=== PATIENT | female | born 1940 | race Caucasian/White ===

== ENCOUNTER 2016-10-17 22:58 | Inpatient (IN) | payer MEDICARE, BC ==
[2016-10-18 00:42] LABS: Glucose,Whole Blood 142 mg/dL (75-99)
--- NOTE | 2016-10-18 00:50 | ED ---
Altered Mental Status HPI - General Chief Complaint: Altered Mental Status Stated Complaint: Confusion Time Seen by Provider: 10/17/16 23:16 Source: patient, family Mode of arrival: ambulatory Limitations: no limitations - History of Present Illness Initial Comments: This patient is a 75-year-old woman who presents to be evaluated after she began experiencing some difficulty with word finding and using the wrong word for things tonight. The patient states that the symptoms were noted around 8: 30. When she was not feeling better she decided to be seen here out of concern she may have had a stroke. Patient denies any associated headache, change in vision or hearing, weakness or numbness of the extremities. Family states that the speech is clear but at times confused. MD Complaint: other Onset/Timin -: hour(s) Severity: mild Consistency of Symptoms: constant Associated Symptoms: denies other symptoms - Related Data Home Medications Medication Instructions Recorded Confirmed Glimepiride [Amaryl] 2 mg PO AC-[id number] 05/15/14 10/17/16 Metoprolol Tartrate [Lopressor] 25 mg PO DAILY 05/15/14 10/17/16 Omeprazole [PriLOSEC] 20 mg PO DAILY PRN 05/15/14 10/17/16 Atorvastatin [Lipitor] 40 mg PO HS 05/03/16 10/17/16 Dicyclomine [Bentyl] 20 mg PO TID 05/03/16 10/17/16 Insulin Detemir [Levemir] 35 unit SQ HS 05/03/16 10/17/16 Fosinopril [Monopril] 10 mg PO DAILY 10/17/16 10/17/16 Insulin Aspart [NovoLOG Flexpen] See Protocol SQ AC-TID 10/17/16 10/17/16 Previous Rx's Medication Instructions Recorded Clopidogrel [Plavix] 75 mg PO DAILY #30 tab 10/20/16 Loperamide [Imodium] 2 mg PO Q6H PRN #30 capsule 10/20/16 Memantine [Namenda] 5 mg PO DAILY #30 tablet 10/20/16 Allergies Allergy/AdvReac Type Severity Reaction Status Date / Time pioglitazone HCl [From Actos] Allergy Rash/Hives Verified 10/17/16 23:39 sulfamethoxazole Allergy Unknown Verified 10/17/16 23:08 [From Bactrim] trimethoprim [From Bactrim] Allergy Unknown Verified 10/17/16 23:08 moxifloxacin HCl AdvReac Mild Nausea & Verified 10/17/16 23:39 [From Avelox] Vomiting cephalexin monohydrate AdvReac Nausea & Verified 10/17/16 23:39 [From Keflex] Vomiting Review of Systems ROS Statement: Those systems with pertinent positive or pertinent negative responses have been documented in the HPI. ROS Other: All systems not noted in ROS Statement are negative. Constitutional: Denies: fever, chills, weakness Eyes: Denies: vision change ENT: Denies: hearing loss Respiratory: Denies: cough, dyspnea Cardiovascular: Denies: chest pain, palpitations, syncope Gastrointestinal: Denies: abdominal pain, vomiting, diarrhea Genitourinary: Denies: dysuria, hematuria Musculoskeletal: Denies: back pain Skin: Denies: rash Neurological: Reports: as per HPI, confusion, other. Denies: headache, weakness , numbness, paresthesias, vertigo Past Medical History Past Medical History: Cancer, CVA/TIA, Diabetes Mellitus, GERD/Reflux, Hyperlipidemia, Hypertension, Osteoarthritis (OA) Additional Past Medical History / Comment(s): SKIN CANCER, INCONTINENCE History of Any Multi-Drug Resistant Organisms: None Reported Past Surgical History: Cholecystectomy, Joint Replacement Additional Past Surgical History / Comment(s): LEFT PARTIAL KNEE REPLACEMNT, RIGHT EYE -[facility]SPORT Past Anesthesia/Blood Transfusion Reactions: Motion Sickness, Postoperative Nausea & Vomiting (PONV) Past Psychological History: Anxiety Smoking Status: Never smoker Past Alcohol Use History: None Reported Past Drug Use History: None Reported - Past Family History Sister(s) Family Medical History: Cancer Additional Family Medical History / Comment(s): BREAST AND BONE CANCER Father Family Medical History: Cancer Additional Family Medical History / Comment(s): SKIN CANCER General Exam Limitations: no limitations General appearance: alert, in no apparent distress Head exam: Present: atraumatic, normocephalic, normal inspection Eye exam: Present: normal appearance, PERRL, EOMI. Absent: scleral icterus, conjunctival injection, nystagmus ENT exam: Present: normal oropharynx Neck exam: Present: normal inspection Respiratory exam: Present: normal lung sounds bilaterally. Absent: respiratory distress, wheezes, rales, rhonchi, stridor Cardiovascular Exam: Present: regular rate, normal rhythm, normal heart sounds. Absent: systolic murmur, diastolic murmur, rubs, gallop GI/Abdominal exam: Present: soft. Absent: distended, tenderness, guarding, rebound, mass Extremities exam: Present: normal inspection, normal capillary refill. Absent: pedal edema, calf tenderness Back exam: Present: normal inspection. Absent: CVA tenderness (R), CVA tenderness (L) Neurological exam: Present: alert, oriented X3, CN II-XII intact. Absent: motor sensory deficit Skin exam: Present: warm, dry, intact, normal color. Absent: rash Course Vital Signs 10/17/16 10/18/16 10/18/16 23:03 01:01 02:49 Temperature 97.6 F 97.6 F 97.6 F Pulse Rate 66 60 62 Pulse Rate [ Pulse Oximetery ] Respiratory 18 18 18 Rate Blood Pressure 143/66 121/60 134/60 Blood Pressure [Right Arm] O2 Sat by Pulse 98 94 L 96 Oximetry 10/18/16 10/18/16 10/18/16 04:30 05:33 08:30 Temperature 97.4 F L Pulse Rate 60 56 L Pulse Rate [ 57 L Pulse Oximetery ] Respiratory 18 18 16 Rate Blood Pressure 120/56 136/59 Blood Pressure 125/61 [Right Arm] O2 Sat by Pulse 95 96 93 L Oximetry 10/18/16 10/18/16 10/18/16 09:30 10:30 11:30 Temperature Pulse Rate Pulse Rate [ 61 61 60 Pulse Oximetery ] Respiratory 16 16 16 Rate Blood Pressure Blood Pressure 119/56 122/58 108/54 [Right Arm] O2 Sat by Pulse 95 97 97 Oximetry 10/18/16 13:30 Temperature 97 F L Pulse Rate Pulse Rate [ 70 Pulse Oximetery ] Respiratory 19 Rate Blood Pressure Blood Pressure 113/55 [Right Arm] O2 Sat by Pulse 96 Oximetry Medical Decision Making - Lab Data Result diagrams: 10/20/16 05:57 10/20/16 05:57 Lab Results 10/18/16 10/18/16 10/18/16 Range/Units 00:40 01:10 01:10 WBC 8.5 (3.8-10.6) k/uL RBC 3.99 (3.80-5.40) m/uL Hgb 12.2 (11.4-16.0) gm/dL Hct 36.7 (34.0-46.0) % MCV 91.9 (80.0-100.0) fL MCH 30.7 (25.0-35.0) pg MCHC 33.4 (31.0-37.0) g/dL RDW 13.2 (11.5-15.5) % Plt Count 152 (150-450) k/uL Neutrophils % 71 % Lymphocytes % 17 % Monocytes % 5 % Eosinophils % 4 % Basophils % 1 % Neutrophils # 6.0 (1.3-7.7) k/uL Lymphocytes # 1.5 (1.0-4.8) k/uL Monocytes # 0.4 (0-1.0) k/uL Eosinophils # 0.3 (0-0.7) k/uL Basophils # 0.1 (0-0.2) k/uL PT (9.0-12.0) sec INR (<1.1) APTT (22.0-30.0) sec Sodium (137-145) mmol/L Potassium (3.5-5.1) mmol/L Chloride (98-107) mmol/L Carbon Dioxide (22-30) mmol/L Anion Gap mmol/L BUN (7-17) mg/dL Creatinine (0.52-1.04) mg/dL Est GFR (MDRD) Af Amer (>60 ml/min/1.73 sqM) Est GFR (MDRD) Non-Af (>60 ml/min/1.73 sqM) Glucose (74-99) mg/dL POC Glucose (mg/dL) 142 H (75-99) mg/dL POC Glu Maid Supervisor Sharmaine Boyd [address] Glu mg/dL mg/dL Hemoglobin A1c (4.2-6.1) % Calcium (8.4-10.2) mg/dL Total Bilirubin (0.2-1.3) mg/dL AST (14-36) U/L ALT (9-52) U/L Alkaline Phosphatase (38-126) U/L Total Creatine Kinase 72 (30-135) U/L CK-MB (CK-2) 0.4 (0.0-2.4) ng/mL CK-MB (CK-2) Rel Index 0.6 Troponin I <0.012 (0.000-0.034) ng/mL Total Protein (6.3-8.2) g/dL Albumin (3.5-5.0) g/dL Urine Color Urine Appearance (Clear) Urine pH (5.0-8.0) Ur Specific [place] (1.001-1.035) Urine Protein (Negative) Urine Glucose (UA) (Negative) Urine Ketones (Negative) Urine Blood (Negative) Urine Nitrite (Negative) Urine Bilirubin (Negative) Urine Urobilinogen (<2.0) mg/dL Ur Leukocyte Esterase (Negative) Urine RBC (0-5) /hpf Urine WBC (0-5) /hpf Urine WBC Clumps (None) /hpf Ur Squamous Epith Cells (0-4) /hpf Urine Bacteria (None) /hpf Urine Mucus (None) /hpf Urine Opiates Screen (NotDetected) Ur Oxycodone Screen (NotDetected) Urine Methadone Screen (NotDetected) Ur Propoxyphene Screen (NotDetected) Ur Barbiturates Screen (NotDetected) U Tricyclic Antidepress (NotDetected) Ur Phencyclidine Scrn (NotDetected) Ur Amphetamines Screen (NotDetected) U Methamphetamines Scrn (NotDetected) U Benzodiazepines Scrn (NotDetected) Urine Cocaine Screen (NotDetected) U Marijuana (THC) Screen (NotDetected) 10/18/16 10/18/16 10/18/16 Range/Units 01:10 01:10 01:10 WBC (3.8-10.6) k/uL RBC (3.80-5.40) m/uL Hgb (11.4-16.0) gm/dL Hct (34.0-46.0) % MCV (80.0-100.0) fL MCH (25.0-35.0) pg MCHC (31.0-37.0) g/dL RDW (11.5-15.5) % Plt Count (150-450) k/uL Neutrophils % % Lymphocytes % % Monocytes % % Eosinophils % % Basophils % % Neutrophils # (1.3-7.7) k/uL Lymphocytes # (1.0-4.8) k/uL Monocytes # (0-1.0) k/uL Eosinophils # (0-0.7) k/uL Basophils # (0-0.2) k/uL PT 10.0 (9.0-12.0) sec INR 1.0 (<1.1) APTT 21.3 L (22.0-30.0) sec Sodium 139 (137-145) mmol/L Potassium 4.5 (3.5-5.1) mmol/L Chloride 102 (98-107) mmol/L Carbon Dioxide 28 (22-30) mmol/L Anion Gap 9 mmol/L BUN 41 H (7-17) mg/dL Creatinine 1.60 H (0.52-1.04) mg/dL Est GFR (MDRD) Af Amer 38 (>60 ml/min/1.73 sqM) Est GFR (MDRD) Non-Af 32 (>60 ml/min/1.73 sqM) Glucose 140 H (74-99) mg/dL POC Glucose (mg/dL) (75-99) mg/dL POC Glu Maid Supervisor ID Estimated Ave Glu mg/dL 154 mg/dL Hemoglobin A1c 7.0 H (4.2-6.1) % Calcium 9.3 (8.4-10.2) mg/dL Total Bilirubin 0.7 (0.2-1.3) mg/dL AST 21 (14-36) U/L ALT 32 (9-52) U/L Alkaline Phosphatase 111 (38-126) U/L Total Creatine Kinase (30-135) U/L CK-MB (CK-2) (0.0-2.4) ng/mL CK-MB (CK-2) Rel Index Troponin I (0.000-0.034) ng/mL Total Protein 6.7 (6.3-8.2) g/dL Albumin 3.9 (3.5-5.0) g/dL Urine Color Urine Appearance (Clear) Urine pH (5.0-8.0) Ur Specific [place] (1.001-1.035) Urine Protein (Negative) Urine Glucose (UA) (Negative) Urine Ketones (Negative) Urine Blood (Negative) Urine Nitrite (Negative) Urine Bilirubin (Negative) Urine Urobilinogen (<2.0) mg/dL Ur Leukocyte Esterase (Negative) Urine RBC (0-5) /hpf Urine WBC (0-5) /hpf Urine WBC Clumps (None) /hpf Ur Squamous Epith Cells (0-4) /hpf Urine Bacteria (None) /hpf Urine Mucus (None) /hpf Urine Opiates Screen (NotDetected) Ur Oxycodone Screen (NotDetected) Urine Methadone Screen (NotDetected) Ur Propoxyphene Screen (NotDetected) Ur Barbiturates Screen (NotDetected) U Tricyclic Antidepress (NotDetected) Ur Phencyclidine Scrn (NotDetected) Ur Amphetamines Screen (NotDetected) U Methamphetamines Scrn (NotDetected) U Benzodiazepines Scrn (NotDetected) Urine Cocaine Screen (NotDetected) U Marijuana (THC) Screen (NotDetected) 10/18/16 10/18/16 Range/Units 01:17 01:17 WBC (3.8-10.6) k/uL RBC (3.80-5.40) m/uL Hgb (11.4-16.0) gm/dL Hct (34.0-46.0) % MCV (80.0-100.0) fL MCH (25.0-35.0) pg MCHC (31.0-37.0) g/dL RDW (11.5-15.5) % Plt Count (150-450) k/uL Neutrophils % % Lymphocytes % % Monocytes % % Eosinophils % % Basophils % % Neutrophils # (1.3-7.7) k/uL Lymphocytes # (1.0-4.8) k/uL Monocytes # (0-1.0) k/uL Eosinophils # (0-0.7) k/uL Basophils # (0-0.2) k/uL PT (9.0-12.0) sec INR (<1.1) APTT (22.0-30.0) sec Sodium (137-145) mmol/L Potassium (3.5-5.1) mmol/L Chloride (98-107) mmol/L Carbon Dioxide (22-30) mmol/L Anion Gap mmol/L BUN (7-17) mg/dL Creatinine (0.52-1.04) mg/dL Est GFR (MDRD) Af Amer (>60 ml/min/1.73 sqM) Est GFR (MDRD) Non-Af (>60 ml/min/1.73 sqM) Glucose (74-99) mg/dL POC Glucose (mg/dL) (75-99) mg/dL POC Glu Maid Supervisor ID Estimated Ave Glu mg/dL mg/dL Hemoglobin A1c (4.2-6.1) % Calcium (8.4-10.2) mg/dL Total Bilirubin (0.2-1.3) mg/dL AST (14-36) U/L ALT (9-52) U/L Alkaline Phosphatase (38-126) U/L Total Creatine Kinase (30-135) U/L CK-MB (CK-2) (0.0-2.4) ng/mL CK-MB (CK-2) Rel Index Troponin I (0.000-0.034) ng/mL Total Protein (6.3-8.2) g/dL Albumin (3.5-5.0) g/dL Urine Color Colorless Urine Appearance Clear (Clear) Urine pH 5.0 (5.0-8.0) Ur Specific [place] 1.005 (1.001-1.035) Urine Protein Negative (Negative) Urine Glucose (UA) Negative (Negative) Urine Ketones Negative (Negative) Urine Blood Negative (Negative) Urine Nitrite Positive H (Negative) Urine Bilirubin Negative (Negative) Urine Urobilinogen <2.0 (<2.0) mg/dL Ur Leukocyte Esterase Moderate H (Negative) Urine RBC 1 (0-5) /hpf Urine WBC 15 H (0-5) /hpf Urine WBC Clumps Rare H (None) /hpf Ur Squamous Epith Cells 3 (0-4) /hpf Urine Bacteria Occasional H (None) /hpf Urine Mucus Rare H (None) /hpf Urine Opiates Screen Not Detected (NotDetected) Ur Oxycodone Screen Not Detected (NotDetected) Urine Methadone Screen Not Detected (NotDetected) Ur Propoxyphene Screen Not Detected (NotDetected) Ur Barbiturates Screen Not Detected (NotDetected) U Tricyclic Antidepress Not Detected (NotDetected) Ur Phencyclidine Scrn Not Detected (NotDetected) Ur Amphetamines Screen Not Detected (NotDetected) U Methamphetamines Scrn Not Detected (NotDetected) U Benzodiazepines Scrn Not Detected (NotDetected) Urine Cocaine Screen Not Detected (NotDetected) U Marijuana (THC) Screen Not Detected (NotDetected) - EKG Data -: EKG Interpreted by Me EKG shows normal: sinus rhythm, axis (Normal), intervals (Normal), QRS complexes (Normal), ST-T waves (Normal) Rate: normal (Rate 62 bpm) Interpretation: normal EKG Disposition Clinical Impression: Altered mental status, Dehydration, Aphasia Narrative: Possible ischemic stroke Disposition: ADMITTED IP TO THIS [facility] Condition: Fair
--- NOTE | 2016-10-18 01:11 | XR ---
Exam: FILM CXR 10/18/16 at 00 29 hours Single frontal view chest INDICATION: Altered mental status COMPARISON: None FINDINGS: Heart size upper normal to borderline cardiomegaly.. Mediastinal contour normal. No venous congestion.. Lungs are clear. No pleural effusions. Bony elements are within normal limits for age. No acute osseous abnormality. IMPRESSION: No acute cardiopulmonary disease. Lungs are clear. Heart size upper normal to borderline cardiomegaly. No evidence for congestive heart failure.
--- NOTE | 2016-10-18 01:14 | CT ---
Exam: CT HEAD Without Contrast INDICATION: Altered mental status TECHNIQUE: Multiple, contiguous 3 mm axial cuts of the brain are obtained from the posterior fossa to the cranial vault. Sagittal and coronal reformatted images provided. No IV contrast is administered. This CT exam was performed using one or more of the following dose reduction techniques: automated exposure control, adjustment of the mA and/or kV according to patient size, and/or use of iterative reconstruction technique. COMPARISON: None FINDINGS: No acute intracranial hemorrhage or midline shift or mass effect. No acute cortical infarct. There is mild prominence of the sulci, ventricles and cisterns. Coleman-white differentiation is maintained. No skull fractures.. The visualized portions of the paranasal sinuses and mastoid air cells are clear. IMPRESSION: 1. No acute intracranial hemorrhage or acute intracranial process.. 2. Mild generalized atrophy..
[2016-10-18 01:39] LABS: Basophils # (A) 0.1 k/uL (0-0.2); Basophils % (A) 1 %; CH 30.9; CHCM 33.8; Eosinophils # (A) 0.3 k/uL (0-0.7); Eosinophils % (A) 4 %; HCT 36.7 % (34.0-46.0); HDW 2.69; HGB 12.2 gm/dL (11.4-16.0); Luc # (Auto) 0.19; Luc % (Auto) 2; Lymphocytes # (A) 1.5 k/uL (1.0-4.8); Lymphocytes % (A) 17 %; MCH 30.7 pg (25.0-35.0); MCHC 33.4 g/dL (31.0-37.0); MCV 91.9 fL (80.0-100.0); Monocytes # (A) 0.4 k/uL (0-1.0); Monocytes % (A) 5 %; Neutrophils % (A) 71 %; RBC 3.99 m/uL (3.80-5.40); RDW 13.2 % (11.5-15.5); WBC 8.5 k/uL (3.8-10.6); WBC (Perox) 8.57
[2016-10-18 01:57] LABS: Calcium 9.3 mg/dL (8.4-10.2); Potassium 4.5 mmol/L (3.5-5.1); Total Bilirubin 0.7 mg/dL (0.2-1.3); Total Protein 6.7 g/dL (6.3-8.2)
[2016-10-18 01:59] LABS: Creatine Kinase 72 U/L (30-135)
[2016-10-18 02:13] LABS: Creatine Kinase MB 0.4 ng/mL (0.0-2.4); Troponin I <0.012 ng/mL (0.000-0.034)
[2016-10-18 02:24] LABS: Appearance,Urine Clear (Clear); Bacteria,Urine Occasional /hpf; Bilirubin,Urine Negative (Negative); Glucose,Urine (UA) Negative (Negative); Ketones,Urine Negative (Negative); Leukocyte Esterase,Urine Moderate (Negative); Mucus,Urine Rare /hpf; Nitrite,Urine Positive (Negative); Particle Count 13150; Protein,Urine Negative (Negative); RBC,Urine 1 /hpf (0-5); Specific Gravity,Urine 1.005 (1.001-1.035); Squamous Epithelial Cell,Urine 3 /hpf (0-4); UA Billing (MACRO vs. MICRO) MICRO; Urobilinogen,Urine <2.0 mg/dL (<2.0); WBC,Urine 15 /hpf (0-5)
[2016-10-18 02:32] LABS: Partial Thromboplastin Time 21.3 sec (22.0-30.0)
[2016-10-18] MEDS ORDERED: ASPIRIN 325 MG TAB PO STA (02:48)
[2016-10-18] MEDS ORDERED: DIPHENOX-ATROP 2.5-0.025 MG 1 EACH TAB PO PRN (02:55)
[2016-10-18] MEDS ORDERED: ALPRAZolam 0.25 MG TAB PO PRN (02:55)
[2016-10-18] MEDS ORDERED: PANTOPRAZOLE 40 MG TABLET PO PRN (02:55)
[2016-10-18] MEDS: SODIUM CHLORIDE 0.9% 1,000 ML IV SCH ×2 (03:07→12:55)
[2016-10-18] MEDS: GLIMEPIRIDE 2 MG TAB PO SCH (08:35)
[2016-10-18] MEDS: INSULIN LISPRO (humaLOG) 300 UNIT/3 ML VIAL SQ SCH ×3 (09:20→17:22)
--- NOTE | 2016-10-18 09:51 | US ---
EXAMINATION TYPE: US carotid duplex BILAT DATE OF EXAM: 10/18/2016 8:38 AM COMPARISON: NONE CLINICAL HISTORY: Stenosis. Altered mental status, dizziness EXAM MEASUREMENTS: RIGHT: Peak Systolic Velocity (PSV) cm/sec ----- Right CCA: 82.7 ----- Right ICA: 98.2 ----- Right ECA: 87.9 ICA/CCA ratio: 1.2 RIGHT: End Diastole cm/sec ----- Right CCA: 11.5 ----- Right ICA: 15.4 ----- Right ECA: 8.9 LEFT: Peak Systolic Velocity (PSV) cm/sec ----- Left CCA: 82.7 ----- Left ICA: 91.1 ----- Left ECA: 96.6 ICA/CCA ratio: 1.1 LEFT: End Diastole cm/sec ----- Left CCA: 16.7 ----- Left ICA: 25.2 ----- Left ECA: 7.6 VERTEBRALS (direction of flow): Right Vertebral: Antegrade Left Vertebral: Antegrade Mild plaque noted bilateral bifurcations. No increased velocities. NO evidence of significant stenosi s IMPRESSION: Mild plaque noted bilateral bifurcations. No increased velocities. NO evidence of signif icant stenosis Criteria for Assigning % of Stenosis / Diameter reduction (Estimation based on the indirect measurements of the internal carotid artery velocities (ICA PSV). 1. Normal (no stenosis)=ICA PSV < 125 cm/s: ratio < 2.0: ICA EDV<40 cm/s. 2. Less than 50% stenosis=ICA PSV < 125 cm/s: ratio < 2.0: ICA EDV<40 cm/s. 3. 50 to 69% stenosis=ICA PSV of 125 to 230 cm/s: ration 2.0 ? 4.0: ICA EDV 40-100 cm/s. 4. Greater than 70% stenosis to near occlusion= ICA PSV > 230 cm/s: ratio > 4.0: ICA EDV > 100 cm/s. 5. Near occlusion= ICA PSV velocities may be low or undetectable: variable ratio and ICA EDV. 6. Total occlusion=unable to detect flow.
[2016-10-18] MEDS: OXYBUTYNIN CHLORIDE 5 MG TAB PO SCH ×3 (11:09→20:31)
[2016-10-18] MEDS: METOPROLOL SUCCINATE (ER) 25 MG TAB.ER.24H PO SCH (11:09)
[2016-10-18] MEDS: LISINOPRIL 10 MG TAB PO SCH (11:09)
[2016-10-18] MEDS: FAMOTIDINE 20 MG/2 ML VIAL IV SCH ×2 (11:09→20:31)
[2016-10-18] MEDS: DICYCLOMINE 20 MG TAB PO SCH ×3 (11:09→20:30)
[2016-10-18 12:01] LABS: Glucose,Whole Blood 133 mg/dL (75-99)
--- NOTE | 2016-10-18 13:26 | ECHOF ---
Referral Reason:Thrombus MEASUREMENTS -------- HEIGHT: 157.5 cm WEIGHT: 86.2 kg BP: RVIDd: 2.2 cm (< 3.3) IVSd: 1.1 cm (0.6 - 1.1) LVIDd: 3.4 cm (3.9 - 5.3) LVPWd: 1.2 cm (0.6 - 1.1) IVSs: 1.4 cm LVIDs: 3.2 cm LVPWs: 1.3 cm LA Diam: 3.4 cm (2.7 - 3.8) LAESV Index (A-L): 30.35 ml/m Ao Diam: 2.6 cm (2.0 - 3.7) AV Cusp: 1.9 cm (1.5 - 2.6) LA Diam: 3.4 cm (2.7 - 3.8) MV EXCURSION: 17.354 mm (> 18.000) MV EF SLOPE: 72 mm/s (70 - 150) EPSS: 0.2 cm MV E Isai: 0.65 m/s MV DecT: 250 ms MV A Isai: 0.79 m/s MV E/A Ratio: 0.83 RAP: 5.00 mmHg RVSP: 30.47 mmHg FINDINGS -------- Sinus rhythm. This was a technically adequate study. There is mild concentric left ventricular hypertrophy. Overall left ventricular systolic function is normal with, an EF between 55 - 60 %. The right ventricle is normal in size. LA is midly dilated 29-33ml/m2. The right atrial size is normal. There is mild aortic valve sclerosis. There is no evidence of aortic regurgitation. Mild mitral annular calcification present. Mild mitral regurgitation is present. Mild tricuspid regurgitation present. There is no evidence of pulmonary hypertension. The right ventricular systolic pressure, as measured by Doppler, is 30.47mmHg. There is no pulmonic regurgitation present. The aortic root size is normal. There is no pericardial effusion. CONCLUSIONS -------- 1. There is mild concentric left ventricular hypertrophy. 2. Overall left ventricular systolic function is normal with, an EF between 55 - 60 %. 3. LA is midly dilated 29-33ml/m2. 4. There is mild aortic valve sclerosis. 5. Mild mitral annular calcification present. 6. Mild mitral regurgitation is present. 7. Mild tricuspid regurgitation present. 8. There is no evidence of pulmonary hypertension. 9. The right ventricular systolic pressure, as measured by Doppler, is 30.47mmHg. IMPORTER OR EXPORTER: Nara Harvey RDCS
--- NOTE | 2016-10-18 17:00 | P.HPIM ---
History of Present Illness H&P Date: 10/18/16 Chief Complaint: Aphagia This is a 75-year-old female who was in good health until a few hours prior to admission. Patient states that she was having difficulty in finding her words. Patient's who is at bedside states that she was having some difficulty finding words however her speech did not appear slurry or jumbled. Patient's symptoms lasted about 1 hour. Thereafter patient was asked to come to the emergency room for further evaluation. Patient was brought to the ER by her via his car. Patient's symptoms have improved by the time of their arrival to the emergency room. In regards to patient obtaining her blood sugar or blood pressure during the symptoms patient states that she did not obtain it or did the family attempted. In the emergency room patient's blood glucose levels were within normal levels. EKG did not reveal any acute ST-T wave changes or any heart blocks. At the time of my evaluation patient denies having any headaches or blurry vision, nausea, chest pain, difficulty breathing, abdominal pain, urinary urgency or frequency. Patient's gait was also within normal limits apparently patient ambulated to the bathroom without any abnormalities states that she is feeling significantly better. Patient denies having any previous history of TIA or strokes. Review of Systems All systems: negative (Noted in HPI) Past Medical History Past Medical History: Cancer, CVA/TIA, Diabetes Mellitus, GERD/Reflux, Hyperlipidemia, Hypertension, Osteoarthritis (OA) Additional Past Medical History / Comment(s): CVA-ONLY RESIDUAL IS SHE HAS DIFFICULTY WITH NUMBERS, HAS HAD A COUGH ALL WINTER, IDDM TYPE II, CHF WITH ACTOS USE, NEUROPATHY BILATERAL FEET, ARTHRITIS FINGERS AND KNEES, LOW BACK PAIN , CHRONIC SINUSITIS, SKIN CANCER, INCONTINENCE History of Any Multi-Drug Resistant Organisms: None Reported Past Surgical History: Breast Surgery, Cholecystectomy, Joint Replacement, Orthopedic Surgery, Tubal Ligation Additional Past Surgical History / Comment(s): CARDIAC CATH IN 2001-NORMAL, LEFT PARTIAL KNEE REPLACEMNT, RIGHT EYE -CORNEA TRANSPLANT, COLONOSCOPIES WITH BENIGN POLYPECTOMY, L UPPER LIP WIDE RESECTION, L BREAST BX X 2-BENIGN. Past Anesthesia/Blood Transfusion Reactions: Postoperative Nausea & Vomiting ( PONV) Additional Past Anesthesia/Blood Transfusion Reaction / Comment(s): ONE TIME THEY STARTED CUTTING AND I WASN'T ASLEEP Past Psychological History: Anxiety, Depression Additional Psychological History / Comment(s): PT STATES SHE HAS ALITTLE DEPRESSION BUT IS NOT SUICIDAL. SHE RESIDES WITH HER SPOUSE. SHE HAS DRIVEN IN QUITE SOME TIME BUT SPOUSE DRIVES. SHE IS INDEPENDENT WITH HER ADLS. Smoking Status: Never smoker Past Alcohol Use History: None Reported Past Drug Use History: None Reported - Past Family History Sister(s) Family Medical History: Cancer Additional Family Medical History / Comment(s): BREAST AND BONE CANCER Father Family Medical History: Cancer Additional Family Medical History / Comment(s): SKIN CANCER. FATHER AT THE AGE OF 88YRS Medications and Allergies Home Medications Medication Instructions Recorded Confirmed Type ALPRAZolam [Xanax] 0.25 mg PO BID PRN 05/15/14 10/17/16 History Glimepiride [Amaryl] 2 mg PO AC-BRKFST 05/15/14 10/17/16 History Metoprolol Tartrate [Lopressor] 25 mg PO DAILY 05/15/14 10/17/16 History Omeprazole [PriLOSEC] 20 mg PO DAILY PRN 05/15/14 10/17/16 History Oxybutynin Chloride [Ditropan] 5 mg PO TID 05/15/14 10/17/16 History Atorvastatin [Lipitor] 40 mg PO HS 05/03/16 10/17/16 History Dicyclomine [Bentyl] 20 mg PO TID 05/03/16 10/17/16 History Diphenoxylate HCl/Atropine 1 tab PO BID PRN 05/03/16 10/17/16 History [Lomotil] Insulin Detemir [Levemir] 35 unit SQ HS 05/03/16 10/17/16 History Aspirin EC [Ecotrin] 325 mg PO DAILY 10/17/16 10/17/16 History Fosinopril [Monopril] 10 mg PO DAILY 10/17/16 10/17/16 History Insulin Aspart [NovoLOG Flexpen] See Protocol SQ AC-TID 10/17/16 10/17/16 History Allergies Allergy/AdvReac Type Severity Reaction Status Date / Time pioglitazone HCl [From Actos] Allergy Rash/Hives Verified 10/17/16 23:39 sulfamethoxazole Allergy Unknown Verified 10/17/16 23:08 [From Bactrim] trimethoprim [From Bactrim] Allergy Unknown Verified 10/17/16 23:08 moxifloxacin HCl AdvReac Mild Nausea & Verified 10/17/16 23:39 [From Avelox] Vomiting cephalexin monohydrate AdvReac Nausea & Verified 10/17/16 23:39 [From Keflex] Vomiting Physical Exam Vitals: Vital Signs Temp Pulse Pulse Resp BP BP Pulse Ox 10/18/16 13:30 97 F L 70 19 113/55 96 10/18/16 11:30 60 16 108/54 97 10/18/16 10:30 61 16 122/58 97 10/18/16 09:30 61 16 119/56 95 10/18/16 08:30 97.4 F L 57 L 16 125/61 93 L 10/18/16 05:33 56 L 18 136/59 96 10/18/16 04:30 60 18 120/56 95 Intake and Output 10/18/16 10/18/16 10/18/16 06:59 14:59 22:59 Intake Total 250 Balance 250 Intake: Oral 250 Other: # Voids 2 Physical exam Gen. appearance oriented 3 in no distress Neck is supple no JVD Lungs good air entry clear to auscultation no rhonchi or wheezing Heart S1-S2 heard regular rate and rhythm no murmurs appreciated Abdomen is soft nontender no organomegaly bowel sounds are intact Neurologically cranial nerves II-12 grossly intact no focal motor or sensory deficits noted status condition noted. Remembers 2 objects after 10 minutes no dysarthria or aphasia appreciated. Skin no abnormalities appreciated Results CBC & Chem 7: 10/18/16 01:10 10/18/16 01:10 Labs: Abnormal Lab Results - Last 24 Hours (Table) 10/18/16 Range/Units 12:00 POC Glucose (mg/dL) 133 H (75-99) mg/dL Thrombosis Risk Factor Assmnt - Choose All That Apply Any of the Below Risk Factors Present?: Yes Each Factor Represents 1 point: Obesity (BMI >25) Other Risk Factors: Yes Each Risk Factor Represents 2 Points: Age 61-74 years, Malignancy Other congenital or acquired thrombophilia - If yes, enter type in comment: No Thrombosis Risk Factor Assessment Total Risk Factor Score: 5 Thrombosis Risk Factor Assessment Level: High Risk Assessment and Plan Plan: #1 acute CVA appears to be transient in nature . Other etiologies could include hypoglycemia in a patient with diabetes and currently on medications. #2 CK D stage III baseline creatinine of point 1. 3 repeat labs in the a.m. #3 diabetes mellitus type 2 #4 history of hypertension #5 dyslipidemia #6 urinary incontinence Plan Patient has had symptoms for one hour. We'll need to monitor for at least 24 hours is a risk of a stroke is high during this period. Echocardiogram is done carotid Doppler is reviewed. Continue telemetry monitoring Aspirin and statin will be given. Patient's medications will be re-reconciled Check frequent glucose levels. Neuro checks If patient does not have any symptoms and risk factors are delineated patient will likely be discharged home thereafter neurology consultation will also be obtained.
[2016-10-18 17:05] LABS: Glucose,Whole Blood 137 mg/dL (75-99)
[2016-10-18] MEDS ORDERED: LORazepam 2 MG/ML SYRINGE IV STA (19:31)
[2016-10-18] MEDS: ATORVASTATIN 40 MG TAB PO SCH (20:30)
[2016-10-18] MEDS: INSULIN DETEMIR 100 UNIT/ML 10 ML VIAL SQ SCH (20:31)
[2016-10-18 21:15] LABS: Glucose,Whole Blood 179 mg/dL (75-99)
[2016-10-19] MEDS: INSULIN LISPRO (humaLOG) 300 UNIT/3 ML VIAL SQ SCH ×5 (00:19→21:31)
[2016-10-19] MEDS ORDERED: ASPIRIN 325 MG TAB PO SCH (02:54)
[2016-10-19 06:43] LABS: Basophils % (A) 0 %; CH 30.4; CHCM 32.9; Eosinophils # (A) 0.3 k/uL (0-0.7); Eosinophils % (A) 4 %; HCT 33.5 % (34.0-46.0); Luc # (Auto) 0.13; Luc % (Auto) 2; Lymphocytes # (A) 1.2 k/uL (1.0-4.8); Lymphocytes % (A) 19 %; MCH 30.5 pg (25.0-35.0); MCHC 32.9 g/dL (31.0-37.0); MCV 92.9 fL (80.0-100.0); Mean Platelet Volume 8.2; Monocytes # (A) 0.4 k/uL (0-1.0); Monocytes % (A) 6 %; Neutrophils # (A) 4.3 k/uL (1.3-7.7); Neutrophils % (A) 68 %; RBC 3.61 m/uL (3.80-5.40); RDW 13.3 % (11.5-15.5); WBC 6.3 k/uL (3.8-10.6); WBC (Perox) 6.62
[2016-10-19] MEDS: GLIMEPIRIDE 2 MG TAB PO SCH (06:44)
[2016-10-19] MEDS: SODIUM CHLORIDE 0.9% 1,000 ML IV SCH ×3 (06:44→18:55)
[2016-10-19 06:48] LABS: Glucose,Whole Blood 77 mg/dL (75-99)
[2016-10-19 07:06] LABS: Potassium 4.4 mmol/L (3.5-5.1)
[2016-10-19 07:07] LABS: Total Bilirubin 0.8 mg/dL (0.2-1.3)
[2016-10-19] MEDS: CLOPIDOGREL 75 MG TAB PO SCH (08:18)
[2016-10-19] MEDS: OXYBUTYNIN CHLORIDE 5 MG TAB PO SCH ×2 (08:18→15:58)
[2016-10-19] MEDS: LISINOPRIL 10 MG TAB PO SCH (08:18)
[2016-10-19] MEDS: METOPROLOL SUCCINATE (ER) 25 MG TAB.ER.24H PO SCH (08:18)
[2016-10-19] MEDS: DICYCLOMINE 20 MG TAB PO SCH ×3 (08:18→21:38)
[2016-10-19] MEDS: FAMOTIDINE 20 MG/2 ML VIAL IV SCH (08:18)
--- NOTE | 2016-10-19 09:43 | CONS ---
DATE OF CONSULTATION: 10/18/2016 CHIEF COMPLAINT: Stroke. HISTORY OF PRESENT ILLNESS: Ms. Wilson is a pleasant 75-year-old female who is being evaluated today on 10/18/2016 by the neurology service per the request of Dr. Gomez for a stroke. The patient was brought into [facility] emergency room yesterday with the main complaint of altered mental status. The patient was found to have word finding difficulties and symptoms had started yesterday night at around 8:30 p.m. She did not have any lateralizing numbness or weakness. The patient does have history of previous stroke and was on aspirin 325 mg daily at home. A CT scan of the brain was done, which showed only mild generalized atrophy and no acute abnormalities. Her carotid Doppler showed no hemodynamically significant stenosis. Her cardiac enzymes, CBC, and urine drug screen were normal. Her comprehensive metabolic profile showed renal insufficiency with a BUN of 41 and creatinine of 1.6. The patient is a poor historian regarding her renal function history. Her urinalysis showed 15 WBCs with moderate leukocyte esterase and positive nitrites. At the time of my evaluation, the patient is sitting at the edge of her bed and appears to be in no acute distress. She states that her symptoms have improved but she is still having occasional word finding difficulties. She denies any visual changes or dizziness or headache. PAST MEDICAL HISTORY: Stroke, skin cancer, diabetes, gastroesophageal reflux disease, dyslipidemia, hypertension, arthritis, anxiety disorder, history of cholecystectomy, skin cancer resection, joint replacement surgery. She has also had history of right eye corneal transplant. SOCIAL HISTORY: She denies any tobacco, alcohol or drug use. FAMILY HISTORY: Positive for cancer. HOME MEDICATIONS: Reviewed in the chart. ALLERGIES: ACTOS, BACTRIM, AVELOX, KEFLEX. REVIEW OF SYSTEMS: CONSTITUTIONAL: Negative. EYES: Positive for chronic diminished vision. ENT: Negative. CARDIOVASCULAR: Negative. RESPIRATORY: Negative. NEUROLOGICAL: As mentioned above. GASTROINTESTINAL: Positive for occasional heartburn. GENITOURINARY: Negative. PSYCHIATRIC: Positive for history of anxiety disorder. DERMATOLOGICAL: Positive for history of skin cancer. ENDOCRINE: Positive for diabetes. MUSCULOSKELETAL: Positive for occasional joint pain. PHYSICAL EXAM: Vital signs show a temperature of 97.4, pulse 61, respirations 16, blood pressure 119/56. GENERAL APPEARANCE: The patient is a well-developed, elderly female who appears to be in no acute distress. HEENT: Normocephalic, atraumatic, no facial asymmetry is seen. Extraocular muscles are intact. NECK: Supple with no masses felt. CARDIOVASCULAR: Regular rate and rhythm. ABDOMEN: Nontender, nondistended. EXTREMITIES: No edema or clubbing. NEUROLOGICAL EXAM: The patient is awake, and oriented x3. Speech and language are normal as the patient had normal comprehension, fluency, naming and repetition. Strength is full in all 4 extremities. Sensory exam was normal to light touch in all 4 extremities except near the left knee where she had a knee replacement surgery. No tremors or seizure-like activity is seen. Minimal right facial droop is seen on cranial nerve testing, but this is from her previous stroke according to her . IMPRESSION: 1. Acute ischemic stroke, likely left middle cerebral artery distribution. 2. Expressive aphasia, improved. 3. Renal insufficiency. 4. Dehydration. 5. Acute urinary tract infection. RECOMMENDATIONS: The patient does appear to have suffered an acute ischemic stroke involving the left middle cerebral artery distribution. The patient's symptoms have improved but she states that she is still sometimes having word finding difficulties. Her neurological examination showed normal language testing. She continues to have a mild right facial droop but this is old and from her previous stroke according to her . I will order an MRI of the brain without contrast. She does report some claustrophobia and will pretreat her with Ativan IV. Her carotid Doppler showed no hemodynamically significant stenosis. I will order a fasting lipid panel, EEG, and serum homocysteine level. I do recommend continued IV hydration. I will discontinue aspirin and start her on Plavix 75 mg daily. It is unclear if the patient has chronic renal disease or if she has significant dehydration at this time. Continue following her BUN and creatinine. I do recommend antibiotic therapy for her urinary tract infection. Speech therapy is following the patient. I will continue to follow with you. Further recommendations to follow. Thank you for allowing me to participate in the care of your patient. If you have any questions, please feel free to contact me.
[2016-10-19 11:27] LABS: Glucose,Whole Blood 137 mg/dL (75-99)
[2016-10-19] MEDS ORDERED: LORazepam 2 MG/ML SYRINGE ONE (13:46)
--- NOTE | 2016-10-19 14:53 | MR ---
EXAMINATION TYPE: MR brain wo con DATE OF EXAM: 10/19/2016 2:39 PM COMPARISON: CT brain 10/18/2016 HISTORY: AMS, TIA vs ischemic stroke, slurred speech, left facial numbness, BLE weakness CONTRAST: Performed utilizing 0 mL intravenous MultiHance gadolinium contrast. TECHNIQUE: Multiplanar, multisequence imaging of the brain is performed on a 3.0 Maribeth magnet. Demye linating disease protocol with additional Sagittal Flair sequence is performed. Study is not performe d within 24 hours of arrival to the hospital. FINDINGS: T2 White Matter Lesions Present : Yes Approximate Number of Lesions: Multiple scattered Locations Identified : Centrum semiovale, subcortical white matter, periventricular white matter Size of Largest Lesion(s): 1. 0.4 cm. Location: Left Centrum semiovale frontal lobe Sequence 401 Image 21 (axial) 2. 0.5 cm. Location: Posterior left frontal lobes subcortical white matter Sequence 401 Image 21 (a xial) Enhancing Lesion(s) Present: Not applicable Change from Prior: No prior MRI Diffusion-weighted imaging is performed. No abnormal hyperintensity is present to suggest an acute i ntracranial infarct or acute ischemic change. Ventricles and sulci are mildly prominent for the patient age. . Some mucosal thickening may be within ethmoid air cells. Remaining paranasal sinuses are clear. Mas toid air cells are clear. IMPRESSION: 1. Scattered white matter changes. The differential could include microvascular ischemic change. Mul tiple sclerosis is considered less likely. Infectious etiologies such as Lyme disease and forms of va sculitis are considered less likely. 2. Mild age-related atrophy. 3. No acute intracranial ischemic changes.
--- NOTE | 2016-10-19 16:06 | P.PN ---
Subjective Principal diagnosis: she is a pleasant 75-year-old female who is being followed by the neurology service for stroke. The patient was brought to [facility] with altered mental status.patient had word finding difficulties but did not have any lateralizing numbness or weakness. Computed tomography scan of the brain was done which showed only mild generalized atrophy no acute abnormalities. As you recall, her carotid Doppler showed no hemodynamically significant stenosis. Patient is a poor historian and information was gathered from staff and chart. At the time of my evaluation, patient is sitting up at the bedside in the chair and appears to be in no acute distress. Objective - Vital Signs Vital signs: Vital Signs Temp 96.6 F L 10/19/16 11:29 Pulse 65 10/19/16 11:30 Resp 18 10/19/16 11:30 BP 152/67 10/19/16 11:29 Pulse Ox 97 10/19/16 11:29 Intake & Output 10/18/16 10/19/16 10/19/16 18:59 06:59 18:59 Intake Total 250 1740 Output Total 900 Balance 250 -900 1740 Weight 86.6 kg Intake: Intake, IV Titration 1200 Amount Sodium Chloride 0.9% 1, 1200 000 ml @ 100 mls/hr IV . Q10H JOSE MIGUEL Rx#:[id number] Oral 250 540 Output: Urine 900 Other: Voiding Method Toilet Toilet # Voids 2 1 - Exam PHYSICAL EXAM: GENERAL APPEARANCE: Patient is a well-developed, female who appears to be in no acute distress. HEENT: Normocephalic, atraumatic, no facial asymmetry is seen. Neck is supple with no masses felt. CARDIOVASCULAR: Regular rate and rhythm. ABDOMEN: Nontender, nondistended. EXTREMITIES: Show no edema or clubbing. NEUROLOGICAL EXAM:the patient is awake, alert, and oriented 2. Patient does not know where she is. Speech and language are normal. Strength is full in all 4 extremities. Sensory exam is normal to light touch in all 4 extremities. Slight facial droop on the right is seen on cranial nerve testing, but this is chronic from prior stroke. No tremors or seizure-like activity is noted. - Labs CBC & Chem 7: 10/19/16 05:59 10/19/16 05:59 Labs: Abnormal Lab Results - Last 24 Hours (Table) 10/18/16 10/18/16 10/19/16 Range/Units 17:03 21:13 05:59 RBC 3.61 L (3.80-5.40) m/uL Hgb 11.0 L (11.4-16.0) gm/dL Hct 33.5 L (34.0-46.0) % Plt Count 127 L (150-450) k/uL Chloride (98-107) mmol/L BUN (7-17) mg/dL Creatinine (0.52-1.04) mg/dL POC Glucose (mg/dL) 137 H 179 H (75-99) mg/dL Total Protein (6.3-8.2) g/dL Albumin (3.5-5.0) g/dL 10/19/16 10/19/16 Range/Units 05:59 11:25 RBC (3.80-5.40) m/uL Hgb (11.4-16.0) gm/dL Hct (34.0-46.0) % Plt Count (150-450) k/uL Chloride 112 H (98-107) mmol/L BUN 31 H (7-17) mg/dL Creatinine 1.32 H (0.52-1.04) mg/dL POC Glucose (mg/dL) 137 H (75-99) mg/dL Total Protein 6.0 L (6.3-8.2) g/dL Albumin 3.4 L (3.5-5.0) g/dL Assessment and Plan Plan: Impression: 1. Acute ischemic stroke 2. Expressive aphasia 3. Renal insufficiency 4. Dehydration 5. Acute urinary tract infection Recommendations: Patient does appear to have suffered an acute ischemic stroke involving the left middle cerebral artery distribution. MRI was done and shows scattered white matter changes. MRI shows microvascular ischemic changes and mild age-related atrophy without any acute process. I recommend continuing patient on Plavix 75 mg by mouth daily. Patient's symptoms are slowly improving but she still has word finding difficulties. As you recall, her carotid Doppler showed no hemodynamically significant stenosis. Her fasting lipid panel and homocysteine level were within normal limits. EEG was ordered but has yet to be performed. Continue current medical management. Continue speech therapy. I will continue to follow with you. Further recommendations to follow. I performed an examination of the patient and discussed the management with the [facility]. I have reviewed the [facility] notes and agree with the findings and plan of care.
[2016-10-19 16:31] LABS: Glucose,Whole Blood 126 mg/dL (75-99)
--- NOTE | 2016-10-19 18:05 | P.PN ---
Subjective This is a 75-year-old female who was in good health until a few hours prior to admission. Patient states that she was having difficulty in finding her words. Patient's who is at bedside states that she was having some difficulty finding words however her speech did not appear slurry or jumbled. Patient's symptoms lasted about 1 hour. Thereafter patient was asked to come to the emergency room for further evaluation. Patient was brought to the ER by her via his car. Patient's symptoms have improved by the time of their arrival to the emergency room. In regards to patient obtaining her blood sugar or blood pressure during the symptoms patient states that she did not obtain it or did the family attempted. In the emergency room patient's blood glucose levels were within normal levels. EKG did not reveal any acute ST-T wave changes or any heart blocks. At the time of my evaluation patient denies having any headaches or blurry vision, nausea, chest pain, difficulty breathing, abdominal pain, urinary urgency or frequency. Patient's gait was also within normal limits apparently patient ambulated to the bathroom without any abnormalities states that she is feeling significantly better. Patient denies having any previous history of TIA or strokes. 10/19/2016 No new overnight events. Patient apparently has had an episode this a.m. where she was having some difficulty finding words. Denies having any headaches, blurry vision, nausea, vomiting, urinary urgency or frequency at this time. Objective - Vital Signs Vital signs: Vital Signs Temp 97.0 F L 10/19/16 16:00 Pulse 62 10/19/16 16:00 Resp 18 10/19/16 16:00 BP 131/65 10/19/16 16:00 Pulse Ox 97 10/19/16 16:00 Intake & Output 10/18/16 10/19/16 10/19/16 18:59 06:59 18:59 Intake Total 250 1740 Output Total 900 250 Balance 250 -900 1490 Weight 86.6 kg Intake: Intake, IV Titration 1200 Amount Sodium Chloride 0.9% 1, 1200 000 ml @ 100 mls/hr IV . Q10H JOSE MIGUEL Rx#:[id number] Oral 250 540 Output: Urine 900 250 Other: Voiding Method Toilet Toilet # Voids 2 1 1 - Exam Physical exam Gen. appearance oriented 3 in no distress Neck is supple no JVD Lungs good air entry clear to auscultation no rhonchi or wheezing Heart S1-S2 heard regular rate and rhythm no murmurs appreciated Abdomen is soft nontender no organomegaly bowel sounds are intact Neurologically cranial nerves II-12 grossly intact no focal motor or sensory deficits noted no dysphagia no dysarthria no aphasia noted. Skin no abnormalities appreciated - Labs CBC & Chem 7: 10/19/16 05:59 10/19/16 05:59 Labs: Abnormal Lab Results - Last 24 Hours (Table) 10/18/16 10/19/16 10/19/16 Range/Units 21:13 05:59 05:59 RBC 3.61 L (3.80-5.40) m/uL Hgb 11.0 L (11.4-16.0) gm/dL Hct 33.5 L (34.0-46.0) % Plt Count 127 L (150-450) k/uL Chloride 112 H (98-107) mmol/L BUN 31 H (7-17) mg/dL Creatinine 1.32 H (0.52-1.04) mg/dL POC Glucose (mg/dL) 179 H (75-99) mg/dL Total Protein 6.0 L (6.3-8.2) g/dL Albumin 3.4 L (3.5-5.0) g/dL 10/19/16 10/19/16 Range/Units 11:25 16:29 RBC (3.80-5.40) m/uL Hgb (11.4-16.0) gm/dL Hct (34.0-46.0) % Plt Count (150-450) k/uL Chloride (98-107) mmol/L BUN (7-17) mg/dL Creatinine (0.52-1.04) mg/dL POC Glucose (mg/dL) 137 H 126 H (75-99) mg/dL Total Protein (6.3-8.2) g/dL Albumin (3.5-5.0) g/dL Assessment and Plan Plan: #1 acute CVA of the left MCA territory. Await MRI results #2 CK D stage III creatinine stable #3 diabetes mellitus type 2 #4 history of hypertension #5 dyslipidemia #6 urinary incontinence Plan There appears to be some concern for delirium at this time. Patient still does not complain of any urinary urgency or frequency. There may be some underlying dementia. Creatinine is improved. Repeat UA in the a.m. Patient apparently has been having some issues with finding words of the RN has discussed that there is some odd behavior where patient forgets her location and this has been going on for 2 weeks at least according to some of the family. Unsure if patient has had progressive loss of her cognitive function. However a Mini-Mental assessment will be done tomorrow Await MRI results
[2016-10-19 21:21] LABS: Glucose,Whole Blood 111 mg/dL (75-99)
[2016-10-19] MEDS: INSULIN DETEMIR 100 UNIT/ML 10 ML VIAL SQ SCH (21:38)
[2016-10-19] MEDS: ATORVASTATIN 40 MG TAB PO SCH (21:38)
[2016-10-20] MEDS: SODIUM CHLORIDE 0.9% 1,000 ML IV SCH (05:11)
[2016-10-20 05:45] LABS: Glucose,Whole Blood 91 mg/dL (75-99)
[2016-10-20 05:55] LABS: Appearance,Urine Clear (Clear); Bacteria,Urine Rare /hpf; Bilirubin,Urine Negative (Negative); Glucose,Urine (UA) Negative (Negative); Ketones,Urine Negative (Negative); Leukocyte Esterase,Urine Large (Negative); Mucus,Urine Rare /hpf; Nitrite,Urine Positive (Negative); Particle Count 22958; Protein,Urine Negative (Negative); RBC,Urine 2 /hpf (0-5); Specific Gravity,Urine 1.006 (1.001-1.035); UA Billing (MACRO vs. MICRO) MICRO; Urobilinogen,Urine <2.0 mg/dL (<2.0); WBC,Urine 56 /hpf (0-5)
[2016-10-20] MEDS: INSULIN LISPRO (humaLOG) 300 UNIT/3 ML VIAL SQ SCH (06:41)
[2016-10-20 06:45] LABS: Basophils % (A) 1 %; CH 31.1; CHCM 33.2; Eosinophils # (A) 0.3 k/uL (0-0.7); Eosinophils % (A) 4 %; HDW 2.68; HGB 11.4 gm/dL (11.4-16.0); Luc # (Auto) 0.15; Luc % (Auto) 2; Lymphocytes # (A) 1.1 k/uL (1.0-4.8); Lymphocytes % (A) 17 %; MCH 30.8 pg (25.0-35.0); MCHC 32.6 g/dL (31.0-37.0); MCV 94.2 fL (80.0-100.0); Mean Platelet Volume 8.2; Monocytes # (A) 0.3 k/uL (0-1.0); Monocytes % (A) 5 %; Neutrophils # (A) 4.9 k/uL (1.3-7.7); Neutrophils % (A) 71 %; RBC 3.71 m/uL (3.80-5.40); RDW 13.2 % (11.5-15.5); WBC 6.9 k/uL (3.8-10.6); WBC (Perox) 7.27
[2016-10-20] MEDS: GLIMEPIRIDE 2 MG TAB PO SCH (06:45)
[2016-10-20 07:00] LABS: Calcium 8.9 mg/dL (8.4-10.2); Potassium 4.4 mmol/L (3.5-5.1); Total Bilirubin 0.7 mg/dL (0.2-1.3); Total Protein 6.3 g/dL (6.3-8.2)
[2016-10-20] MEDS: LISINOPRIL 10 MG TAB PO SCH (08:06)
[2016-10-20] MEDS: CLOPIDOGREL 75 MG TAB PO SCH (08:06)
[2016-10-20] MEDS: METOPROLOL SUCCINATE (ER) 25 MG TAB.ER.24H PO SCH (08:06)
[2016-10-20] MEDS: DICYCLOMINE 20 MG TAB PO SCH (08:06)
[2016-10-20 08:11] VITALS: RESP 16
[2016-10-20] MEDS ORDERED: FAMOTIDINE 20 MG TAB PO SCH (09:00)
[2016-10-20 11:41] LABS: Glucose,Whole Blood 108 mg/dL (75-99)
[2016-10-20 12:26] VITALS: PULSE 55
[2016-10-20 12:28] VITALS: BP 140/58; TEMP 97.5
--- NOTE | 2016-10-20 15:13 | P.DS ---
Providers Date of admission: 10/18/16 02:49 Attending physician: Trish Gomez Primary care physician: Lilia Krystal [facility] Course: This is a 75-year-old female who was in good health until a few hours prior to admission. Patient states that she was having difficulty in finding her words. Patient's who is at bedside states that she was having some difficulty finding words however her speech did not appear slurry or jumbled. Patient's symptoms lasted about 1 hour. Thereafter patient was asked to come to the emergency room for further evaluation. Patient was brought to the ER by her via his car. Patient's symptoms have improved by the time of their arrival to the emergency room. In regards to patient obtaining her blood sugar or blood pressure during the symptoms patient states that she did not obtain it or did the family attempted. In the emergency room patient's blood glucose levels were within normal levels. EKG did not reveal any acute ST-T wave changes or any heart blocks. At the time of my evaluation patient denies having any headaches or blurry vision, nausea, chest pain, difficulty breathing, abdominal pain, urinary urgency or frequency. Patient's gait was also within normal limits apparently patient ambulated to the bathroom without any abnormalities states that she is feeling significantly better. Patient denies having any previous history of TIA or strokes. 10/19/2016 No new overnight events. Patient apparently has had an episode this a.m. where she was having some difficulty finding words. Denies having any headaches, blurry vision, nausea, vomiting, urinary urgency or frequency at this time. - Exam Physical exam Gen. appearance oriented 3 in no distress Neck is supple no JVD Lungs good air entry clear to auscultation no rhonchi or wheezing Heart S1-S2 heard regular rate and rhythm no murmurs appreciated Abdomen is soft nontender no organomegaly bowel sounds are intact Neurologically cranial nerves II-12 grossly intact no focal motor or sensory deficits noted no dysphagia no dysarthria no aphasia noted. 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 Transient ischemic attack MRI results were noted appears to be multiple old strokes. #2 CK D stage III creatinine stable #3 diabetes mellitus type 2 #4 history of hypertension #5 dyslipidemia #6 urinary incontinence Dementia MMSE score 21 Accordanc to the family patient has been progressively getting forgetful over the last few years. 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 Patient is not able to recall or do serial sevens. MMSE score was around 21. Discussed with the patient will attempt a dose of Namenda 5 mg. Is to follow- up with the neurologist on an outpatient basis Patient will be discharged on Plavix and atorvastatin as recommended by her neurologist. Plan - Discharge Summary New Discharge Prescriptions: Clopidogrel [Plavix] 75 mg PO DAILY #30 tab Loperamide [Imodium] 2 mg PO Q6H PRN #30 capsule PRN Reason: Diarrhea Memantine [Namenda] 5 mg PO DAILY #30 tablet Discharge Medication List Glimepiride [Amaryl] 2 mg PO AC-BRKFST 05/15/14 [History] Metoprolol Tartrate [Lopressor] 25 mg PO DAILY 05/15/14 [History] Omeprazole [PriLOSEC] 20 mg PO DAILY PRN 05/15/14 [History] Atorvastatin [Lipitor] 40 mg PO HS 05/03/16 [History] Dicyclomine [Bentyl] 20 mg PO TID 05/03/16 [History] Insulin Detemir [Levemir] 35 unit SQ HS 05/03/16 [History] Fosinopril [Monopril] 10 mg PO DAILY 10/17/16 [History] Insulin Aspart [NovoLOG Flexpen] See Protocol SQ AC-TID 10/17/16 [History] Clopidogrel [Plavix] 75 mg PO DAILY #30 tab 10/20/16 [Rx] Loperamide [Imodium] 2 mg PO Q6H PRN #30 capsule 10/20/16 [Rx] Memantine [Namenda] 5 mg PO DAILY #30 tablet 10/20/16 [Rx] Follow up Appointment(s)/Referral(s): Janee De Oliveira MD [STAFF PHYSICIAN] - 1 Week Lilia Rice MD [Primary Care Provider] - 1 Week Patient Instructions/Handouts: Transient Ischemic Attack (GEN) Activity/Diet/Wound Care/Special Instructions: activity as tolerated diabetic/cardiac diet take medications as prescribed Follow-up with physician, call for appt. office closed Discharge Disposition: HOME SELF-CARE
--- NOTE | 2016-10-25 08:30 | EEG ---
DATE OF SERVICE: 10/20/2016 REASON FOR TESTING: Altered mental status and stroke. AGE: 75Y DESCRIPTION OF THE PROCEDURE: This EEG was performed using a 21-channel digital electroencephalograph, following the international 10 to 20 system. DESCRIPTION OF THE RECORDING: From the beginning of the tracing, and with the patient's eyes closed, the background rhythm was mostly consisting of 7 Hz theta frequency in the posterior occipital leads. No obvious asymmetry is seen. Muscle artifacts and movement artifacts are seen. Photic stimulation was performed with no driving response seen. No pathological waves were elicited. Hyperventilation was not performed. The patient remains awake throughout the tracing. No epileptiform discharges were seen. Her EKG lead showed a regular rate and rhythm. INTERPRETATION: This awake EEG is abnormal due to the presence of generalized slowing of the background rhythm, mostly in the theta range. This is consistent with mild encephalopathy. No epileptiform discharges were seen. The absence of epileptiform discharges does not rule out the diagnosis of epilepsy, therefore clinical correlation is recommended.
== END 2016-10-20 14:45 | disposition home or self-care (01) | DRG 65 ==
LOC: EC 22:58 → 6SEL 10-18 02:49 → 3SUR 10-20 10:53
PROVIDERS: ADMIT Hospitalist; ATTEND Hospitalist
DX: I63.9 Cerebral infarction, unspecified (principal); N39.0 Urinary tract infection, site not specified; I13.0 Hypertensive heart and chronic kidney disease with heart failure and stage 1 through stage 4 chronic kidney disease, or unspecified chronic kidney disease; I50.9 Heart failure, unspecified; F03.90 Unspecified dementia, unspecified severity, without behavioral disturbance, psychotic disturbance, mood disturbance, and anxiety; E11.40 Type 2 diabetes mellitus with diabetic neuropathy, unspecified; R47.01 Aphasia; E86.0 Dehydration; I69.998 Other sequelae following unspecified cerebrovascular disease; E78.5 Hyperlipidemia, unspecified; F32.9 Major depressive disorder, single episode, unspecified; F41.9 Anxiety disorder, unspecified; J32.9 Chronic sinusitis, unspecified; K21.9 Gastro-esophageal reflux disease without esophagitis; R32 Unspecified urinary incontinence; N18.3 Chronic kidney disease, stage 3 (moderate); M54.5 Low back pain; M19.049 Primary osteoarthritis, unspecified hand; M17.0 Bilateral primary osteoarthritis of knee; H54.7 Unspecified visual loss; Z79.4 Long term (current) use of insulin; Z79.82 Long term (current) use of aspirin; Z79.899 Other long term (current) drug therapy; Z85.828 Personal history of other malignant neoplasm of skin; Z88.1 Allergy status to other antibiotic agents; Z88.2 Allergy status to sulfonamides; Z88.8 Allergy status to other drugs, medicaments and biological substances; Z96.652 Presence of left artificial knee joint
CPT/HCPCS: 36415; 70450; 70551; 71010; 80053; 80061; 80306; 81001; 82550; 82553; 83036; 83090; 84443; 84484; 85025; 85610; 85730; 87077; 87086; 87186; 93005; 93306; 93880; 95819; 96361; 96374; 96375; 99285

== ENCOUNTER → 2017-02-08 | Outpatient (CLI) | payer MEDICARE, BC ==
[2017-02-08 09:42] LABS: Cholesterol 138 mg/dL (<200); HDL Cholesterol 53 mg/dL (40-60); Triglycerides 118 mg/dL (<150)
== END | disposition home or self-care (01) ==
LOC: LABWHC1 09:04
PROVIDERS: ATTEND Psychiatry & Neurology Pain Medicine
DX: I63.9 Cerebral infarction, unspecified (principal)
CPT/HCPCS: 36415; 80061

== ENCOUNTER → 2017-07-24 | Outpatient (CLI) | payer MEDICARE, BC ==
[2017-07-24 12:56] LABS: Appearance,Urine Clear (Clear); Bacteria,Urine Many /hpf; Bilirubin,Urine Negative (Negative); Blood,Urine Negative (Negative); Color,Urine Light Yellow; Glucose,Urine (UA) Negative (Negative); Ketones,Urine Negative (Negative); Leukocyte Esterase,Urine Small (Negative); Nitrite,Urine Negative (Negative); Protein,Urine Negative (Negative); Specific Gravity,Urine 1.006 (1.001-1.035); Squamous Epithelial Cell,Urine <1 /hpf (0-4); Urobilinogen,Urine <2.0 mg/dL (<2.0); WBC,Urine 14 /hpf (0-5)
[2017-07-24 12:58] LABS: Albumin 4.1 g/dL (3.5-5.0); Calcium 9.6 mg/dL (8.4-10.2); Phosphorus 3.9 mg/dL (2.5-4.5); Potassium 4.8 mmol/L (3.5-5.1); Total Bilirubin 0.5 mg/dL (0.2-1.3); Total Protein 6.9 g/dL (6.3-8.2); Uric Acid 6.3 mg/dL (3.7-7.4)
[2017-07-24 19:34] LABS: Vitamin D 25 Hydroxy 30.7 ng/mL (30.0-100.0)
[2017-07-24 21:26] LABS: Parathyroid Hormone Intact 41.7 pg/mL (14.0-72.0)
== END | disposition home or self-care (01) ==
LOC: LABWHC1 11:35
PROVIDERS: ATTEND Internal Medicine
DX: N18.3 Chronic kidney disease, stage 3 (moderate) (principal); E21.3 Hyperparathyroidism, unspecified; E55.9 Vitamin D deficiency, unspecified; M10.9 Gout, unspecified; R80.9 Proteinuria, unspecified
CPT/HCPCS: 36415; 80053; 81001; 82043; 82306; 82570; 83735; 83970; 84100; 84550; 87077; 87086; 87186

== ENCOUNTER → 2017-11-24 | Outpatient (CLI) | payer MEDICARE, BC ==
[2017-11-24 12:14] LABS: HCT 37.1 % (34.0-46.0); HGB 12.7 gm/dL (11.4-16.0); MCHC 34.3 g/dL (31.0-37.0); MCV 90.4 fL (80.0-100.0); Platelet Count 159 k/uL (150-450); RDW 13.2 % (11.5-15.5); WBC 7.6 k/uL (3.8-10.6)
[2017-11-24 12:21] LABS: Appearance,Urine Clear (Clear); Bilirubin,Urine Negative (Negative); Blood,Urine Negative (Negative); Color,Urine Light Yellow; Glucose,Urine (UA) Negative (Negative); Ketones,Urine Negative (Negative); Leukocyte Esterase,Urine Negative (Negative); Nitrite,Urine Negative (Negative); PH, Urine 5.5 (5.0-8.0); Protein,Urine Negative (Negative); Specific Gravity,Urine 1.005 (1.001-1.035); Urobilinogen,Urine <2.0 mg/dL (<2.0)
[2017-11-24 12:44] LABS: Albumin 4.1 g/dL (3.5-5.0); Calcium 9.6 mg/dL (8.4-10.2); Phosphorus 4.1 mg/dL (2.5-4.5); Potassium 4.9 mmol/L (3.5-5.1); Total Bilirubin 0.7 mg/dL (0.2-1.3); Total Protein 6.6 g/dL (6.3-8.2); Uric Acid 5.9 mg/dL (3.7-7.4)
[2017-11-24 19:05] LABS: Iron Saturation 27.78 (12.00-45.00)
[2017-11-24 19:14] LABS: Parathyroid Hormone Intact 55.1 pg/mL (14.0-72.0)
[2017-11-24 19:15] LABS: Vitamin D 25 Hydroxy 26.6 ng/mL (30.0-100.0)
== END | disposition home or self-care (01) ==
LOC: LABWHC1 11:43
PROVIDERS: ATTEND Internal Medicine
DX: E55.9 Vitamin D deficiency, unspecified (principal); N39.0 Urinary tract infection, site not specified; D63.1 Anemia in chronic kidney disease; N18.3 Chronic kidney disease, stage 3 (moderate); N25.81 Secondary hyperparathyroidism of renal origin; M10.9 Gout, unspecified
CPT/HCPCS: 36415; 80053; 81003; 82306; 82728; 83540; 83550; 83735; 83970; 84100; 84550; 85027

== ENCOUNTER → 2018-04-25 | Outpatient (CLI) | payer MEDICARE, BC ==
[2018-04-25 12:11] LABS: Albumin 3.9 g/dL (3.5-5.0); Appearance,Urine Clear (Clear); Bilirubin,Urine Negative (Negative); Blood,Urine Negative (Negative); Calcium 9.6 mg/dL (8.4-10.2); Color,Urine Yellow; Glucose,Urine (UA) Negative (Negative); Ketones,Urine Negative (Negative); Leukocyte Esterase,Urine Negative (Negative); Magnesium 2.1 mg/dL (1.6-2.3); Nitrite,Urine Negative (Negative); Phosphorus 4.3 mg/dL (2.5-4.5); Potassium 4.8 mmol/L (3.5-5.1); Protein,Urine Negative (Negative); Uric Acid 5.6 mg/dL (3.7-7.4); Urobilinogen,Urine <2.0 mg/dL (<2.0)
[2018-04-25 12:12] LABS: HCT 36.8 % (34.0-46.0); HGB 12.2 gm/dL (11.4-16.0); MCH 31.2 pg (25.0-35.0); MCHC 33.3 g/dL (31.0-37.0); MCV 93.7 fL (80.0-100.0); Mean Platelet Volume 7.6; Platelet Count 142 k/uL (150-450); RBC 3.92 m/uL (3.80-5.40); RDW 13.4 % (11.5-15.5); WBC 6.9 k/uL (3.8-10.6)
[2018-04-25 17:04] LABS: Iron Saturation 19.49 (12.00-45.00)
[2018-04-25 17:13] LABS: Vitamin D 25 Hydroxy 42.5 ng/mL (30.0-100.0)
[2018-04-25 18:09] LABS: Parathyroid Hormone Intact 39.7 pg/mL (14.0-72.0)
[2018-04-25 19:13] LABS: Hemoglobin A1C 7.8 % (4.0-6.0)
== END | disposition home or self-care (01) ==
LOC: LABWHC1 10:50
PROVIDERS: ATTEND Nurse Practitioner Family
DX: N39.0 Urinary tract infection, site not specified (principal); M10.9 Gout, unspecified; E55.9 Vitamin D deficiency, unspecified; D63.1 Anemia in chronic kidney disease; N18.3 Chronic kidney disease, stage 3 (moderate)
CPT/HCPCS: 36415; 80048; 81003; 82040; 82306; 82728; 83036; 83540; 83550; 83735; 83970; 84100; 84550; 85027

== ENCOUNTER → 2018-07-30 | Outpatient (CLI) | payer MEDICARE, BC | END | disposition home or self-care (01) | LOC: LABWHC1 08:08 | PROVIDERS: ATTEND Internal Medicine Cardiovascular Disease | DX: E78.2 Mixed hyperlipidemia (principal) | CPT/HCPCS: 36415; 80061; 82550; 84450; 84460 ==

== ENCOUNTER 2019-06-26 00:02 | Emergency (ER) | payer MEDICARE, BC ==
[2019-06-26 00:13] VITALS: RESP 18; TEMP 97.5
[2019-06-26 00:35] LABS: Glucose,Whole Blood 490 mg/dL (75-99)
[2019-06-26] MEDS ORDERED: SODIUM CHLORIDE 0.9% 500 ML 500 ML IV ONE (00:42)
--- NOTE | 2019-06-26 00:43 | ED ---
General Adult HPI - General Chief complaint: Recheck/Abnormal Lab/Rx Stated complaint: High Blood Sugar Time Seen by Provider: 06/26/19 00:18 Source: patient, RN notes reviewed, old records reviewed Mode of arrival: wheelchair Limitations: no limitations - History of Present Illness Initial comments: 78-year-old female presents for evaluation of elevated blood sugar. Patient a blood sugar which was 500 at home. She was recently started on IV steroids for an inflammatory process in her left eye. She's received 2 doses of IV steroids. She is currently on NovoLog 4 times daily as well as oral diabetic medication. Patient has no specific complaints. No pain complaints. No nausea vomiting. No fever. No dysuria or hematuria. Chest pain or dyspnea. - Related Data Home Medications Medication Instructions Recorded Confirmed Glimepiride [Amaryl] 2 mg PO AC-BRKFST 05/15/14 10/17/16 Metoprolol Tartrate [Lopressor] 25 mg PO DAILY 05/15/14 10/17/16 Omeprazole [PriLOSEC] 20 mg PO DAILY PRN 05/15/14 10/17/16 Atorvastatin [Lipitor] 40 mg PO HS 05/03/16 10/17/16 Dicyclomine [Bentyl] 20 mg PO TID 05/03/16 10/17/16 Insulin Detemir (Levemir) [Levemir] 35 unit SQ HS 05/03/16 10/17/16 Fosinopril [Monopril] 10 mg PO DAILY 10/17/16 10/17/16 Insulin Aspart [NovoLOG Flexpen] See Protocol SQ AC-TID 10/17/16 10/17/16 Previous Rx's Medication Instructions Recorded Clopidogrel [Plavix] 75 mg PO DAILY #30 tab 10/20/16 Loperamide [Imodium] 2 mg PO Q6H PRN #30 capsule 10/20/16 Memantine [Namenda] 5 mg PO DAILY #30 tablet 10/20/16 Allergies Allergy/AdvReac Type Severity Reaction Status Date / Time pioglitazone HCl [From Actos] Allergy Rash/Hives Verified 10/17/16 23:39 sulfamethoxazole Allergy Unknown Verified 10/17/16 23:08 [From Bactrim] trimethoprim [From Bactrim] Allergy Unknown Verified 10/17/16 23:08 moxifloxacin HCl AdvReac Mild Nausea & Verified 10/17/16 23:39 [From Avelox] Vomiting cephalexin monohydrate AdvReac Nausea & Verified 10/17/16 23:39 [From Keflex] Vomiting Review of Systems ROS Statement: Those systems with pertinent positive or pertinent negative responses have been documented in the HPI. ROS Other: All systems not noted in ROS Statement are negative. Past Medical History Past Medical History: Cancer, CVA/TIA, Diabetes Mellitus, GERD/Reflux, Hyperlipidemia, Hypertension, Osteoarthritis (OA) Additional Past Medical History / Comment(s): SKIN CANCER, INCONTINENCE History of Any Multi-Drug Resistant Organisms: None Reported Past Surgical History: Cholecystectomy, Joint Replacement Additional Past Surgical History / Comment(s): LEFT PARTIAL KNEE REPLACEMNT, RIGHT EYE -[facility] TRANSPORT Past Anesthesia/Blood Transfusion Reactions: Motion Sickness, Postoperative Nausea & Vomiting (PONV) Additional Past Anesthesia/Blood Transfusion Reaction / Comment(s): ONE TIME THEY STARTED CUTTING AND I WASN'T ASLEEP Past Psychological History: Anxiety Smoking Status: Never smoker Past Alcohol Use History: None Reported Past Drug Use History: None Reported - Past Family History Sister(s) Family Medical History: Cancer Additional Family Medical History / Comment(s): BREAST AND BONE CANCER Father Family Medical History: Cancer Additional Family Medical History / Comment(s): SKIN CANCER General Exam Limitations: no limitations General appearance: alert, in no apparent distress Head exam: Present: atraumatic, normocephalic Eye exam: Present: normal appearance, PERRL ENT exam: Present: mucous membranes dry Neck exam: Present: normal inspection. Absent: tenderness, meningismus Respiratory exam: Present: normal lung sounds bilaterally. Absent: respiratory distress, wheezes Cardiovascular Exam: Present: regular rate, normal rhythm GI/Abdominal exam: Present: soft. Absent: distended, tenderness, guarding, rebound Extremities exam: Present: normal inspection, normal capillary refill Neurological exam: Present: alert, oriented X3, CN II-XII intact. Absent: motor sensory deficit Psychiatric exam: Present: normal affect, normal mood Skin exam: Present: warm, dry, intact. Absent: cyanosis, diaphoretic Course Vital Signs 06/26/19 06/26/19 00:09 02:37 Temperature 97.5 F L Pulse Rate 54 L 55 L Respiratory 18 18 Rate Blood Pressure 179/73 163/70 O2 Sat by Pulse 98 98 Oximetry Medical Decision Making - Medical Decision Making 78-year-old female presenting with elevated blood sugar, no other complaints. Blood sugar is checked in the emergency (500. She is currently on IV steroids for an inflammatory condition in the left eye. She had received dose earlier today. She does have an elevated white blood cell count likely secondary to steroid infusion at 13.9. She has creatinine 1.23 which is baseline. Sugar is 500, and down trending with IV fluids and IV insulin. Mild lactic acidosis 2.9 treated with IV hydration likely secondary to dehydration from increased diuresis. She has a normal anion gap. Negative acetone. She will continue oral hydration, continue close monitoring of blood sugar at home. They will see the primary care physician with regards to increase in insulin administration during the time which she is receiving IV steroids. He will return with significantly elevated blood sugar or development of new symptoms. - Lab Data Result diagrams: 06/26/19 00:32 06/26/19 00:32 Lab Results 06/26/19 06/26/19 06/26/19 Range/Units 00:31 00:32 00:32 WBC 13.9 H (3.8-10.6) k/uL RBC 4.26 (3.80-5.40) m/uL Hgb 12.7 (11.4-16.0) gm/dL Hct 39.3 (34.0-46.0) % MCV 92.2 (80.0-100.0) fL MCH 29.7 (25.0-35.0) pg MCHC 32.2 (31.0-37.0) g/dL RDW 12.7 (11.5-15.5) % Plt Count 136 L (150-450) k/uL Neutrophils % 95 % Lymphocytes % 3 % Monocytes % 1 % Eosinophils % 1 % Basophils % 0 % Neutrophils # 13.2 H (1.3-7.7) k/uL Lymphocytes # 0.4 L (1.0-4.8) k/uL Monocytes # 0.2 (0-1.0) k/uL Eosinophils # 0.1 (0-0.7) k/uL Basophils # 0.0 (0-0.2) k/uL Sodium 137 (137-145) mmol/L Potassium 4.4 (3.5-5.1) mmol/L Chloride 105 (98-107) mmol/L Carbon Dioxide 21 L (22-30) mmol/L Anion Gap 11 mmol/L BUN 43 H (7-17) mg/dL Creatinine 1.23 H (0.52-1.04) mg/dL Est GFR (CKD-EPI)AfAm 49 (>60 ml/min/1.73 sqM) Est GFR (CKD-EPI)NonAf 43 (>60 ml/min/1.73 sqM) Glucose 503 H* (74-99) mg/dL POC Glucose (mg/dL) 490 H (75-99) mg/dL POC Glu Trigonometry Tutor ID Mena Katz Plasma Lactic Acid Allen (0.7-2.0) mmol/L Calcium 9.3 (8.4-10.2) mg/dL Total Bilirubin 0.6 (0.2-1.3) mg/dL AST 28 (14-36) U/L ALT 21 (4-34) U/L Alkaline Phosphatase 116 (38-126) U/L Total Protein 6.9 (6.3-8.2) g/dL Albumin 4.2 (3.5-5.0) g/dL Urine Color Urine Appearance (Clear) Urine pH (5.0-8.0) Ur Specific [place] (1.001-1.035) Urine Protein (Negative) Urine Glucose (UA) (Negative) Urine Ketones (Negative) Urine Blood (Negative) Urine Nitrite (Negative) Urine Bilirubin (Negative) Urine Urobilinogen (<2.0) mg/dL Ur Leukocyte Esterase (Negative) Acetone, Qual Negative (Negative) 06/26/19 06/26/19 06/26/19 Range/Units 00:32 01:06 02:19 WBC (3.8-10.6) k/uL RBC (3.80-5.40) m/uL Hgb (11.4-16.0) gm/dL Hct (34.0-46.0) % MCV (80.0-100.0) fL MCH (25.0-35.0) pg MCHC (31.0-37.0) g/dL RDW (11.5-15.5) % Plt Count (150-450) k/uL Neutrophils % % Lymphocytes % % Monocytes % % Eosinophils % % Basophils % % Neutrophils # (1.3-7.7) k/uL Lymphocytes # (1.0-4.8) k/uL Monocytes # (0-1.0) k/uL Eosinophils # (0-0.7) k/uL Basophils # (0-0.2) k/uL Sodium (137-145) mmol/L Potassium (3.5-5.1) mmol/L Chloride (98-107) mmol/L Carbon Dioxide (22-30) mmol/L Anion Gap mmol/L BUN (7-17) mg/dL Creatinine (0.52-1.04) mg/dL Est GFR (CKD-EPI)AfAm (>60 ml/min/1.73 sqM) Est GFR (CKD-EPI)NonAf (>60 ml/min/1.73 sqM) Glucose (74-99) mg/dL POC Glucose (mg/dL) 415 H (75-99) mg/dL POC Glu Trigonometry Tutor ID GriselMena tobias Plasma Lactic Acid Allen 2.9 H* (0.7-2.0) mmol/L Calcium (8.4-10.2) mg/dL Total Bilirubin (0.2-1.3) mg/dL AST (14-36) U/L ALT (4-34) U/L Alkaline Phosphatase (38-126) U/L Total Protein (6.3-8.2) g/dL Albumin (3.5-5.0) g/dL Urine Color Light Yellow Urine Appearance Clear (Clear) Urine pH 5.0 (5.0-8.0) Ur Specific [place] 1.027 (1.001-1.035) Urine Protein Negative (Negative) Urine Glucose (UA) 4+ H (Negative) Urine Ketones Negative (Negative) Urine Blood Negative (Negative) Urine Nitrite Negative (Negative) Urine Bilirubin Negative (Negative) Urine Urobilinogen <2.0 (<2.0) mg/dL Ur Leukocyte Esterase Negative (Negative) Acetone, Qual (Negative) 06/26/19 Range/Units 03:12 WBC (3.8-10.6) k/uL RBC (3.80-5.40) m/uL Hgb (11.4-16.0) gm/dL Hct (34.0-46.0) % MCV (80.0-100.0) fL MCH (25.0-35.0) pg MCHC (31.0-37.0) g/dL RDW (11.5-15.5) % Plt Count (150-450) k/uL Neutrophils % % Lymphocytes % % Monocytes % % Eosinophils % % Basophils % % Neutrophils # (1.3-7.7) k/uL Lymphocytes # (1.0-4.8) k/uL Monocytes # (0-1.0) k/uL Eosinophils # (0-0.7) k/uL Basophils # (0-0.2) k/uL Sodium (137-145) mmol/L Potassium (3.5-5.1) mmol/L Chloride (98-107) mmol/L Carbon Dioxide (22-30) mmol/L Anion Gap mmol/L BUN (7-17) mg/dL Creatinine (0.52-1.04) mg/dL Est GFR (CKD-EPI)AfAm (>60 ml/min/1.73 sqM) Est GFR (CKD-EPI)NonAf (>60 ml/min/1.73 sqM) Glucose (74-99) mg/dL POC Glucose (mg/dL) 342 H (75-99) mg/dL POC Glu Trigonometry Tutor ID Griselmicheline Mena Plasma Lactic Acid Allen (0.7-2.0) mmol/L Calcium (8.4-10.2) mg/dL Total Bilirubin (0.2-1.3) mg/dL AST (14-36) U/L ALT (4-34) U/L Alkaline Phosphatase (38-126) U/L Total Protein (6.3-8.2) g/dL Albumin (3.5-5.0) g/dL Urine Color Urine Appearance (Clear) Urine pH (5.0-8.0) Ur Specific [place] (1.001-1.035) Urine Protein (Negative) Urine Glucose (UA) (Negative) Urine Ketones (Negative) Urine Blood (Negative) Urine Nitrite (Negative) Urine Bilirubin (Negative) Urine Urobilinogen (<2.0) mg/dL Ur Leukocyte Esterase (Negative) Acetone, Qual (Negative) Disposition Clinical Impression: Hyperglycemia due to type 2 diabetes mellitus, Dehydration Disposition: HOME SELF-CARE Condition: Fair Instructions (If sedation given, give patient instructions): Diabetic Hyperglycemia (ED) Is patient prescribed a controlled substance at d/c from ED?: No Referrals: Lilia Rice MD [Primary Care Provider] - 1-2 days Time of Disposition: 03:23
[2019-06-26 00:48] LABS: Basophils % (A) 0 %; Eosinophils # (A) 0.1 k/uL (0-0.7); Eosinophils % (A) 1 %; HCT 39.3 % (34.0-46.0); HGB 12.7 gm/dL (11.4-16.0); Lymphocytes # (A) 0.4 k/uL (1.0-4.8); Lymphocytes % (A) 3 %; MCH 29.7 pg (25.0-35.0); MCHC 32.2 g/dL (31.0-37.0); MCV 92.2 fL (80.0-100.0); Mean Platelet Volume 8.7; Monocytes # (A) 0.2 k/uL (0-1.0); Monocytes % (A) 1 %; Neutrophils # (A) 13.2 k/uL (1.3-7.7); Neutrophils % (A) 95 %; Platelet Count 136 k/uL (150-450); RBC 4.26 m/uL (3.80-5.40); RDW 12.7 % (11.5-15.5); WBC 13.9 k/uL (3.8-10.6)
[2019-06-26 01:07] LABS: Chloride 105 mmol/L (98-107); Potassium 4.4 mmol/L (3.5-5.1)
[2019-06-26 01:10] LABS: ALT 21 U/L (4-34); AST 28 U/L (14-36); African American GFR (CKD) 49 (>60 ml/min/1.73 sqM); Albumin 4.2 g/dL (3.5-5.0); Alkaline Phosphatase 116 U/L (38-126); Anion Gap 11 mmol/L; Blood Urea Nitrogen 43 mg/dL (7-17); Calcium 9.3 mg/dL (8.4-10.2); Carbon Dioxide 21 mmol/L (22-30); Non-African American GFR(CKD) 43 (>60 ml/min/1.73 sqM); Sodium 137 mmol/L (137-145); Total Bilirubin 0.6 mg/dL (0.2-1.3); Total Protein 6.9 g/dL (6.3-8.2)
[2019-06-26] MEDS ORDERED: INSULIN REGULAR 100 UNIT/ML VIAL IV ONE ×2 (01:10→02:32)
[2019-06-26 01:18] LABS: Glucose 503 mg/dL (74-99)
[2019-06-26 01:27] LABS: Appearance,Urine Clear (Clear); Bilirubin,Urine Negative (Negative); Blood,Urine Negative (Negative); Color,Urine Light Yellow; Glucose,Urine (UA) 4+ (Negative); Ketones,Urine Negative (Negative); Leukocyte Esterase,Urine Negative (Negative); Nitrite,Urine Negative (Negative); Protein,Urine Negative (Negative); Specific Gravity,Urine 1.027 (1.001-1.035); Urobilinogen,Urine <2.0 mg/dL (<2.0)
[2019-06-26] MEDS ORDERED: SODIUM CHLORIDE 0.9% 1,000 ML IV SCH (01:30)
[2019-06-26 02:22] LABS: Glucose,Whole Blood 415 mg/dL (75-99)
[2019-06-26 02:38] VITALS: BP 163/70; PULSE 55
[2019-06-26 03:13] LABS: Glucose,Whole Blood 342 mg/dL (75-99)
== END 2019-06-26 03:36 | disposition home or self-care (01) ==
LOC: EC 00:02
DX: E86.0 Dehydration (principal); E11.65 Type 2 diabetes mellitus with hyperglycemia; D72.829 Elevated white blood cell count, unspecified; H57.89 Other specified disorders of eye and adnexa; E87.2 Acidosis; K21.9 Gastro-esophageal reflux disease without esophagitis; E78.5 Hyperlipidemia, unspecified; I10 Essential (primary) hypertension; M19.90 Unspecified osteoarthritis, unspecified site; Z88.1 Allergy status to other antibiotic agents; Z88.2 Allergy status to sulfonamides; Z88.8 Allergy status to other drugs, medicaments and biological substances; Z79.4 Long term (current) use of insulin; Z79.52 Long term (current) use of systemic steroids; Z79.899 Other long term (current) drug therapy; Z85.828 Personal history of other malignant neoplasm of skin; Z96.652 Presence of left artificial knee joint; Z94.7 Corneal transplant status
CPT/HCPCS: 36415; 80053; 81003; 82009; 83605; 85025; 96360; 96361; 99285

== ENCOUNTER 2019-09-09 15:14 | Emergency (ER) | payer MEDICARE, BC ==
[2019-09-09 15:19] VITALS: TEMP 98.5
[2019-09-09] MEDS ORDERED: DIPH,PERTUS(ACELL)TETVAC-LF 0.5 ML VIAL IM ONE (15:50)
--- NOTE | 2019-09-09 15:56 | ED ---
General Adult HPI - General Chief complaint: Fall Stated complaint: Fall Time Seen by Provider: 09/09/19 15:20 Source: patient, EMS, RN notes reviewed, old records reviewed Mode of arrival: EMS Limitations: no limitations - History of Present Illness Initial comments: This is a 78-year-old female who presents emergency Department complaining that she hit her head when she fell. Patient states she has had a stroke in the past and she has some weakness on the right side. Patient states she was bringing groceries into the house and she believes she turned too fast lost her balance and fell backwards and hit her head. Patient states she has a little bit of neck pain noted in the center but on the sides of her neck. Patient states she did not lose consciousness and she was not dazed. Patient states she is on Plavix however. Patient denies having had a tetanus recently. Patient denies any back pain patient denies chest pain difficulty breathing first breath per patient denies any abdominal pain. Patient denies any extremity pain. - Related Data Home Medications Medication Instructions Recorded Confirmed Glimepiride [Amaryl] 2 mg PO AC-BRKFST 05/15/14 10/17/16 Metoprolol Tartrate [Lopressor] 25 mg PO DAILY 05/15/14 10/17/16 Omeprazole [PriLOSEC] 20 mg PO DAILY PRN 05/15/14 10/17/16 Atorvastatin [Lipitor] 40 mg PO HS 05/03/16 10/17/16 Dicyclomine [Bentyl] 20 mg PO TID 05/03/16 10/17/16 Insulin Detemir (Levemir) [Levemir] 35 unit SQ HS 05/03/16 10/17/16 Fosinopril [Monopril] 10 mg PO DAILY 10/17/16 10/17/16 Insulin Aspart [NovoLOG Flexpen] See Protocol SQ AC-TID 10/17/16 10/17/16 Previous Rx's Medication Instructions Recorded Clopidogrel [Plavix] 75 mg PO DAILY #30 tab 10/20/16 Loperamide [Imodium] 2 mg PO Q6H PRN #30 capsule 10/20/16 Memantine [Namenda] 5 mg PO DAILY #30 tablet 10/20/16 Allergies Allergy/AdvReac Type Severity Reaction Status Date / Time pioglitazone HCl [From Actos] Allergy Rash/Hives Verified 10/17/16 23:39 sulfamethoxazole Allergy Unknown Verified 10/17/16 23:08 [From Bactrim] trimethoprim [From Bactrim] Allergy Unknown Verified 10/17/16 23:08 moxifloxacin HCl AdvReac Mild Nausea & Verified 10/17/16 23:39 [From Avelox] Vomiting cephalexin monohydrate AdvReac Nausea & Verified 10/17/16 23:39 [From Keflex] Vomiting Review of Systems ROS Statement: Those systems with pertinent positive or pertinent negative responses have been documented in the HPI. ROS Other: All systems not noted in ROS Statement are negative. Past Medical History Past Medical History: Cancer, CVA/TIA, Diabetes Mellitus, GERD/Reflux, Hyperlipidemia, Hypertension, Osteoarthritis (OA) Additional Past Medical History / Comment(s): SKIN CANCER, INCONTINENCE History of Any Multi-Drug Resistant Organisms: None Reported Past Surgical History: Cholecystectomy, Joint Replacement Additional Past Surgical History / Comment(s): LEFT PARTIAL KNEE REPLACEMNT, RIGHT EYE -[facility] TRANSPORT Past Anesthesia/Blood Transfusion Reactions: Motion Sickness, Postoperative Nausea & Vomiting (PONV) Additional Past Anesthesia/Blood Transfusion Reaction / Comment(s): ONE TIME THEY STARTED CUTTING AND I WASN'T ASLEEP Past Psychological History: Anxiety Smoking Status: Never smoker Past Alcohol Use History: None Reported Past Drug Use History: None Reported - Past Family History Sister(s) Family Medical History: Cancer Additional Family Medical History / Comment(s): BREAST AND BONE CANCER Father Family Medical History: Cancer Additional Family Medical History / Comment(s): SKIN CANCER General Exam - General Exam Comments Initial Comments: GENERAL: Patient is well-developed and well-nourished. Patient is nontoxic and well- hydrated and is in mild distress. ENT: Neck is soft and supple. No significant lymphadenopathy is noted. Oropharynx is clear. Moist mucous membranes. Patient was in a c-collar site did not e xamine her neck and this time because she did complain of pain in the neck and I was already CAT scan in her head. EYES: The sclera were anicteric and conjunctiva were pink and moist. Extraocular mo vements were intact and pupils were equal round and reactive to light. Eyelids were unremarkable. PULMONARY: Unlabored respirations. Good breath sounds bilaterally. No audible rales rhonchi or wheezing was noted. CARDIOVASCULAR: There is a regular rate and rhythm without any murmurs gallops or rubs. ABDOMEN: Soft and nontender with normal bowel sounds. SKIN: Scalp laceration the occipital region was 3.5 cm along NEUROLOGIC: Patient is alert and oriented x3. Cranial nerves II through XII are grossly intact. Motor and sensory are also intact. Normal speech, volume and content. Symmetrical smile. MUSCULOSKELETAL: Normal extremities with adequate strength and full range of motion. No lower extremity swelling or edema. No calf tenderness. LYMPHATICS: No significant lymphadenopathy is noted PSYCHIATRIC: Normal psychiatric evaluation. Limitations: no limitations Course Vital Signs 09/09/19 15:16 Temperature 98.5 F Pulse Rate 73 Respiratory 18 Rate Blood Pressure 164/69 O2 Sat by Pulse 95 Oximetry Procedures - Laceration Laceration #1 Consent Obtained: verbal consent Indication: laceration Site: scalp Description: linear Depth: simple, single layer Pre-repair: wound explored Type of Sutures: other ([place]) Size of Sutures: other (6) Technique: simple, interrupted Complications: pain Patient Tolerated Procedure: well Medical Decision Making - Medical Decision Making CT head and neck show no acute abnormality I sutured the laceration on the patient's scalp laceration measured 3.5 cm. Disposition Clinical Impression: Fall, Scalp laceration, Head injury Disposition: HOME SELF-CARE Condition: Good Instructions (If sedation given, give patient instructions): Fall Prevention for Older Adults (ED), Laceration (ED), Head Injury (ED) Is patient prescribed a controlled substance at d/c from ED?: No Referrals: Lilia Rice MD [Primary Care Provider] - 1-2 days Time of Disposition: 17:03
--- NOTE | 2019-09-09 16:20 | CT ---
EXAMINATION TYPE: CT brain cspine wo con DATE OF EXAM: 09/09/2019 COMPARISON: CT brain October 18, 2016. HISTORY: Fall with posterior head injury. On Plavix with neck pain. CT DLP: 1704.8 mGycm. Automated Exposure Control for Dose Reduction was Utilized. TECHNIQUE: CT scan of the head and cervical spine are performed without contrast. FINDINGS: There is no acute intracranial hemorrhage or midline shift identified. Diffuse ventricula r and sulcal prominence. Low attenuation in the periventricular white matter is redemonstrated. The c alvarium is intact. Completely opacified left sphenoid and nearly completely opacified right sphenoid sinus. Moderate mucosal thickening and mild mucosal thickening in visualized portion of both maxilla ry sinuses. Mild to moderate mucosal thickening bilateral ethmoid sinuses with patchy fluid left ante rior and posterior ethmoid sinuses on current study. Globes are intact. Cervical spine is visualized in its entirety from C1 through upper thoracic levels and demonstrates satisfactory alignment without evidence of acute fracture or dislocation. Prevertebral soft tissue a ppears within normal limits. The C1-C2 articulation is within normal limits on the coronal images. M [id number] disc space narrowing C6-C7 level with posterior spur effacing the anterior thecal sac . Thyroid gland is normal in size. Visualized lung apices show no pneumothorax. IMPRESSION: 1. There is no acute fracture or dislocation evident in the cervical spine. 2. No acute intracranial hemorrhage or midline shift is seen. Mild to moderate diffuse cerebral atrop hy and chronic small vessel ischemic change. Acute on chronic paranasal sinus disease noted as detail ed above new from 2017 CT.
[2019-09-09 17:04] VITALS: BP 169/86; PULSE 86; RESP 181
== END 2019-09-09 17:19 | disposition home or self-care (01) ==
LOC: EC 15:14
DX: S01.01XA Laceration without foreign body of scalp, initial encounter (principal); Z23 Encounter for immunization; E11.9 Type 2 diabetes mellitus without complications; E78.5 Hyperlipidemia, unspecified; I10 Essential (primary) hypertension; K21.9 Gastro-esophageal reflux disease without esophagitis; Z79.4 Long term (current) use of insulin; Z79.899 Other long term (current) drug therapy; Z88.1 Allergy status to other antibiotic agents; Z88.2 Allergy status to sulfonamides; Z88.8 Allergy status to other drugs, medicaments and biological substances; Z86.73 Personal history of transient ischemic attack (TIA), and cerebral infarction without residual deficits; Z85.828 Personal history of other malignant neoplasm of skin; W18.09XA Striking against other object with subsequent fall, initial encounter
CPT/HCPCS: 12002; 70450; 72125; 90471; 90715; 99284

== ENCOUNTER 2020-02-27 19:56 | Observation (INO) | payer MEDICARE ==
--- NOTE | 2020-02-27 20:01 | ED ---
Altered Mental Status HPI - General Stated Complaint: altered mental status Time Seen by Provider: 02/27/20 19:58 Source: RN notes reviewed, old records reviewed, Caregiver Mode of arrival: EMS Limitations: altered mental status - History of Present Illness Initial Comments: This is a 71-year-old female DF for evaluation of significant weakness altered mental status may have had some facial droop earlier in the day falls persistent sleeping and weakness patient is a poor historian not participating questioning MD Complaint: altered mental status, confusion, decreased responsiveness, weakness -: hour(s) Severity: moderate Consistency of Symptoms: getting worse Context: history of similar presentation Associated Symptoms: denies other symptoms - Related Data Home Medications Medication Instructions Recorded Confirmed Atorvastatin [Lipitor] 40 mg PO HS 05/03/16 02/27/20 Insulin Detemir (Levemir) [Levemir] 35 unit SQ HS 05/03/16 02/27/20 Insulin Aspart [NovoLOG Flexpen] See Protocol SQ AC-TID 10/17/16 02/27/20 Carbidopa-Levodopa 10-100 mg 1 tab PO TID 02/27/20 02/27/20 [Sinemet 10-100 mg] Glimepiride [Amaryl] 1 mg PO AC-LUNCH 02/27/20 02/27/20 Memantine [Namenda] 10 mg PO DAILY 02/27/20 02/27/20 Mirabegron [Myrbetriq] 50 mg PO DAILY 02/27/20 02/27/20 Sodium Chloride 5% Ophth Oint 1 applic BOTH EYES DAILY 02/27/20 02/27/20 [Ashwini 128] prednisoLONE ACETATE 1% OPHTH 1 drops BOTH EYES MOWEFR 02/27/20 02/27/20 [Pred Forte 1%] Previous Rx's Medication Instructions Recorded Carbidopa-Levodopa 25-100 mg 1 each PO QID #120 tab 02/28/20 [Sinemet 25-100] Dicyclomine [Bentyl] 20 mg PO BID PRN #0 02/28/20 Meclizine [Antivert] 12.5 mg PO BID PRN #0 02/28/20 Allergies Allergy/AdvReac Type Severity Reaction Status Date / Time pioglitazone HCl [From Actos] Allergy Rash/Hives Verified 02/27/20 21:40 sulfamethoxazole Allergy Unknown Verified 02/27/20 21:40 [From Bactrim] trimethoprim [From Bactrim] Allergy Unknown Verified 02/27/20 21:40 moxifloxacin HCl AdvReac Mild Nausea & Verified 02/27/20 21:40 [From Avelox] Vomiting cephalexin monohydrate AdvReac Nausea & Verified 02/27/20 21:40 [From Keflex] Vomiting Review of Systems ROS Statement: Those systems with pertinent positive or pertinent negative responses have been documented in the HPI. ROS Other: All systems not noted in ROS Statement are negative. Past Medical History Past Medical History: Cancer, CVA/TIA, Diabetes Mellitus, GERD/Reflux, Hyperlipidemia, Hypertension, Osteoarthritis (OA) Additional Past Medical History / Comment(s): SKIN CANCER, INCONTINENCE History of Any Multi-Drug Resistant Organisms: None Reported Past Surgical History: Cholecystectomy, Joint Replacement Additional Past Surgical History / Comment(s): LEFT PARTIAL KNEE REPLACEMNT, RIGHT EYE -[facility] TRANSPORT Past Anesthesia/Blood Transfusion Reactions: Motion Sickness, Postoperative Nausea & Vomiting (PONV) Additional Past Anesthesia/Blood Transfusion Reaction / Comment(s): ONE TIME THEY STARTED CUTTING AND I WASN'T ASLEEP Past Psychological History: Anxiety Past Alcohol Use History: None Reported Past Drug Use History: None Reported - Past Family History Sister(s) Family Medical History: Cancer Additional Family Medical History / Comment(s): BREAST AND BONE CANCER Father Family Medical History: Cancer Additional Family Medical History / Comment(s): SKIN CANCER General Exam General appearance: alert, in no apparent distress Head exam: Present: atraumatic, normocephalic, normal inspection Eye exam: Present: normal appearance, PERRL, EOMI. Absent: scleral icterus, conjunctival injection, periorbital swelling ENT exam: Present: normal exam, mucous membranes moist Neck exam: Present: normal inspection. Absent: tenderness, meningismus, lymphadenopathy Respiratory exam: Present: normal lung sounds bilaterally. Absent: respiratory distress, wheezes, rales, rhonchi, stridor Cardiovascular Exam: Present: regular rate, normal rhythm, normal heart sounds. Absent: systolic murmur, diastolic murmur, rubs, gallop, clicks GI/Abdominal exam: Present: soft, normal bowel sounds. Absent: distended, tenderness, guarding, rebound, rigid Extremities exam: Present: normal inspection, full ROM, normal capillary refill. Absent: tenderness, pedal edema, joint swelling, calf tenderness Back exam: Present: normal inspection Neurological exam: Present: alert, oriented X3, CN II-XII intact Psychiatric exam: Present: normal affect, normal mood Skin exam: Present: warm, dry, intact, normal color. Absent: rash Course Vital Signs 02/27/20 02/27/20 02/27/20 20:00 20:52 22:09 Temperature 98.1 F Pulse Rate 63 61 Respiratory 18 16 19 Rate Blood Pressure 134/81 134/79 O2 Sat by Pulse 99 98 Oximetry - Reevaluation(s) Reevaluation #1: Medical records reviewed Patient continues to have decreased level responsiveness and consciousness No response to Narcan Spoke with patient and family regarding symptoms of findings questions answered Medical Decision Making - Medical Decision Making 79 female with altered level of consciousness decreased responsiveness will not for neurology to evaluate - Lab Data Result diagrams: 02/27/20 20:13 02/27/20 20:13 Lab Results 02/27/20 02/27/20 02/27/20 Range/Units 19:58 20:13 20:13 WBC 5.5 (3.8-10.6) k/uL RBC 4.37 (3.80-5.40) m/uL Hgb 13.4 (11.4-16.0) gm/dL Hct 40.3 (34.0-46.0) % MCV 92.2 (80.0-100.0) fL MCH 30.6 (25.0-35.0) pg MCHC 33.2 (31.0-37.0) g/dL RDW 13.0 (11.5-15.5) % Plt Count 124 L (150-450) k/uL Neutrophils % 69 % Lymphocytes % 19 % Monocytes % 5 % Eosinophils % 4 % Basophils % 0 % Neutrophils # 3.8 (1.3-7.7) k/uL Lymphocytes # 1.1 (1.0-4.8) k/uL Monocytes # 0.3 (0-1.0) k/uL Eosinophils # 0.2 (0-0.7) k/uL Basophils # 0.0 (0-0.2) k/uL PT 9.8 (9.0-12.0) sec INR 0.9 (<1.2) APTT 20.3 L (22.0-30.0) sec Sodium (137-145) mmol/L Potassium (3.5-5.1) mmol/L Chloride (98-107) mmol/L Carbon Dioxide (22-30) mmol/L Anion Gap mmol/L BUN (7-17) mg/dL Creatinine (0.52-1.04) mg/dL Est GFR (CKD-EPI)AfAm (>60 ml/min/1.73 sqM) Est GFR (CKD-EPI)NonAf (>60 ml/min/1.73 sqM) Glucose (74-99) mg/dL Estimated Ave Glu mg/dL Hemoglobin A1c (4.0-6.0) % Plasma Lactic Acid Allen (0.7-2.0) mmol/L Calcium (8.4-10.2) mg/dL Phosphorus (2.5-4.5) mg/dL Magnesium (1.6-2.3) mg/dL Total Bilirubin (0.2-1.3) mg/dL AST (14-36) U/L ALT (4-34) U/L Alkaline Phosphatase (38-126) U/L Ammonia (<30) umol/L Creatine Kinase (30-135) U/L Troponin I (0.000-0.034) ng/mL NT-Pro-B Natriuret Pep pg/mL Total Protein (6.3-8.2) g/dL Albumin (3.5-5.0) g/dL Vitamin B12 (200.0-944.0) pg/mL Folate ng/mL TSH (0.465-4.680) mIU/L Urine Color Yellow Urine Appearance Cloudy H (Clear) Urine pH 5.5 (5.0-8.0) Ur Specific Brewster 1.012 (1.001-1.035) Urine Protein Negative (Negative) Urine Glucose (UA) Negative (Negative) Urine Ketones Negative (Negative) Urine Blood Negative (Negative) Urine Nitrite Negative (Negative) Urine Bilirubin Negative (Negative) Urine Urobilinogen <2.0 (<2.0) mg/dL Ur Leukocyte Esterase Trace H (Negative) Urine RBC <1 (0-5) /hpf Urine WBC 2 (0-5) /hpf Ur Squamous Epith Cells 1 (0-4) /hpf Amorphous Sediment Rare H (None) /hpf Hyaline Casts 3 H (0-2) /lpf Urine Mucus Rare H (None) /hpf 02/27/20 02/27/20 02/27/20 Range/Units 20:13 20:13 20:13 WBC (3.8-10.6) k/uL RBC (3.80-5.40) m/uL Hgb (11.4-16.0) gm/dL Hct (34.0-46.0) % MCV (80.0-100.0) fL MCH (25.0-35.0) pg MCHC (31.0-37.0) g/dL RDW (11.5-15.5) % Plt Count (150-450) k/uL Neutrophils % % Lymphocytes % % Monocytes % % Eosinophils % % Basophils % % Neutrophils # (1.3-7.7) k/uL Lymphocytes # (1.0-4.8) k/uL Monocytes # (0-1.0) k/uL Eosinophils # (0-0.7) k/uL Basophils # (0-0.2) k/uL PT (9.0-12.0) sec INR (<1.2) APTT (22.0-30.0) sec Sodium 138 (137-145) mmol/L Potassium 4.3 (3.5-5.1) mmol/L Chloride 105 (98-107) mmol/L Carbon Dioxide 30 (22-30) mmol/L Anion Gap 3 mmol/L BUN 30 H (7-17) mg/dL Creatinine 1.13 H (0.52-1.04) mg/dL Est GFR (CKD-EPI)AfAm 54 (>60 ml/min/1.73 sqM) Est GFR (CKD-EPI)NonAf 47 (>60 ml/min/1.73 sqM) Glucose 105 H (74-99) mg/dL Estimated Ave Glu mg/dL Hemoglobin A1c (4.0-6.0) % Plasma Lactic Acid Allen <0.5 L (0.7-2.0) mmol/L Calcium 9.0 (8.4-10.2) mg/dL Phosphorus 4.0 (2.5-4.5) mg/dL Magnesium 2.2 (1.6-2.3) mg/dL Total Bilirubin 0.7 (0.2-1.3) mg/dL AST 22 (14-36) U/L ALT 19 (4-34) U/L Alkaline Phosphatase 99 (38-126) U/L Ammonia <9 (<30) umol/L Creatine Kinase 28 L (30-135) U/L Troponin I <0.012 (0.000-0.034) ng/mL NT-Pro-B Natriuret Pep pg/mL Total Protein 6.0 L (6.3-8.2) g/dL Albumin 3.7 (3.5-5.0) g/dL Vitamin B12 (200.0-944.0) pg/mL Folate ng/mL TSH (0.465-4.680) mIU/L Urine Color Urine Appearance (Clear) Urine pH (5.0-8.0) Ur Specific Brewster (1.001-1.035) Urine Protein (Negative) Urine Glucose (UA) (Negative) Urine Ketones (Negative) Urine Blood (Negative) Urine Nitrite (Negative) Urine Bilirubin (Negative) Urine Urobilinogen (<2.0) mg/dL Ur Leukocyte Esterase (Negative) Urine RBC (0-5) /hpf Urine WBC (0-5) /hpf Ur Squamous Epith Cells (0-4) /hpf Amorphous Sediment (None) /hpf Hyaline Casts (0-2) /lpf Urine Mucus (None) /hpf 02/27/20 02/27/20 02/27/20 Range/Units 20:13 20:13 20:13 WBC (3.8-10.6) k/uL RBC (3.80-5.40) m/uL Hgb (11.4-16.0) gm/dL Hct (34.0-46.0) % MCV (80.0-100.0) fL MCH (25.0-35.0) pg MCHC (31.0-37.0) g/dL RDW (11.5-15.5) % Plt Count (150-450) k/uL Neutrophils % % Lymphocytes % % Monocytes % % Eosinophils % % Basophils % % Neutrophils # (1.3-7.7) k/uL Lymphocytes # (1.0-4.8) k/uL Monocytes # (0-1.0) k/uL Eosinophils # (0-0.7) k/uL Basophils # (0-0.2) k/uL PT (9.0-12.0) sec INR (<1.2) APTT (22.0-30.0) sec Sodium (137-145) mmol/L Potassium (3.5-5.1) mmol/L Chloride (98-107) mmol/L Carbon Dioxide (22-30) mmol/L Anion Gap mmol/L BUN (7-17) mg/dL Creatinine (0.52-1.04) mg/dL Est GFR (CKD-EPI)AfAm (>60 ml/min/1.73 sqM) Est GFR (CKD-EPI)NonAf (>60 ml/min/1.73 sqM) Glucose (74-99) mg/dL Estimated Ave Glu mg/dL 194 Hemoglobin A1c 8.4 H (4.0-6.0) % Plasma Lactic Acid Allen (0.7-2.0) mmol/L Calcium (8.4-10.2) mg/dL Phosphorus (2.5-4.5) mg/dL Magnesium (1.6-2.3) mg/dL Total Bilirubin (0.2-1.3) mg/dL AST (14-36) U/L ALT (4-34) U/L Alkaline Phosphatase (38-126) U/L Ammonia (<30) umol/L Creatine Kinase (30-135) U/L Troponin I (0.000-0.034) ng/mL NT-Pro-B Natriuret Pep 206 pg/mL Total Protein (6.3-8.2) g/dL Albumin (3.5-5.0) g/dL Vitamin B12 902.0 (200.0-944.0) pg/mL Folate >24.0 ng/mL TSH 1.660 (0.465-4.680) mIU/L Urine Color Urine Appearance (Clear) Urine pH (5.0-8.0) Ur Specific Brewster (1.001-1.035) Urine Protein (Negative) Urine Glucose (UA) (Negative) Urine Ketones (Negative) Urine Blood (Negative) Urine Nitrite (Negative) Urine Bilirubin (Negative) Urine Urobilinogen (<2.0) mg/dL Ur Leukocyte Esterase (Negative) Urine RBC (0-5) /hpf Urine WBC (0-5) /hpf Ur Squamous Epith Cells (0-4) /hpf Amorphous Sediment (None) /hpf Hyaline Casts (0-2) /lpf Urine Mucus (None) /hpf - EKG Data -: EKG Interpreted by Me (EKG is normal sinus rhythm of 60.NJ 196 QRS 78 QTc 420) - Radiology Data Radiology results: report reviewed (CT brain CT had neck negative for acute disease), image reviewed Disposition Clinical Impression: Altered mental status, Right lower lobe lung mass, Weakness, Dehydration Disposition: ADMITTED IP TO THIS HOSP Condition: Fair Is patient prescribed a controlled substance at d/c from ED?: No
[2020-02-27 20:28] LABS: Basophils % (A) 0 %; Eosinophils # (A) 0.2 k/uL (0-0.7); Eosinophils % (A) 4 %; HCT 40.3 % (34.0-46.0); HGB 13.4 gm/dL (11.4-16.0); Lymphocytes # (A) 1.1 k/uL (1.0-4.8); Lymphocytes % (A) 19 %; MCH 30.6 pg (25.0-35.0); MCHC 33.2 g/dL (31.0-37.0); MCV 92.2 fL (80.0-100.0); Mean Platelet Volume 8.3; Monocytes # (A) 0.3 k/uL (0-1.0); Monocytes % (A) 5 %; Neutrophils # (A) 3.8 k/uL (1.3-7.7); Neutrophils % (A) 69 %; Platelet Count 124 k/uL (150-450); RBC 4.37 m/uL (3.80-5.40); WBC 5.5 k/uL (3.8-10.6)
[2020-02-27] MEDS ORDERED: NALOXONE 0.4 MG/ML 1 ML VIAL IVP STA (20:28)
[2020-02-27 20:38] LABS: Albumin 3.7 g/dL (3.5-5.0); Magnesium 2.2 mg/dL (1.6-2.3); Potassium 4.3 mmol/L (3.5-5.1); Total Bilirubin 0.7 mg/dL (0.2-1.3)
[2020-02-27 20:39] LABS: Lactic Acid, Venous <0.5 mmol/L (0.7-2.0)
[2020-02-27 20:45] LABS: INR 0.9 (<1.2); Prothrombin Time 9.8 sec (9.0-12.0)
--- NOTE | 2020-02-27 20:55 | CT ---
EXAMINATION TYPE: CT brain wo con DATE OF EXAM: 02/27/2020 COMPARISON: 09/09/2019 HISTORY: AMS CT DLP: 1142.4 mGycm Automated exposure control for dose reduction was used. Images obtained without contrast. There is cerebral atrophy. There is no mass effect nor midline shift. There is no sign of intracrania l hemorrhage. Sella turcica appears normal. Skull base is intact. Calvarium is intact. IMPRESSION: Mild atrophy. No acute intracranial abnormality. There is significant clearing of the sphenoid sinusi tis compared to old exam.
[2020-02-27] MEDS ORDERED: SODIUM CHLORIDE 0.9% 1,000 ML IV ONE (21:04)
[2020-02-27] MEDS ORDERED: AMPICILLIN-SULBACTAM 3 GM in SODIUM CHLORIDE 0.9% 100 ML IVPB STA (21:05)
--- NOTE | 2020-02-27 21:05 | XR ---
EXAMINATION TYPE: XR chest 2V DATE OF EXAM: 02/27/2020 COMPARISON: 10/18/2016 HISTORY: Weakness TECHNIQUE: 2 views FINDINGS: There is 5 cm masslike density in the superior segment right lower lobe. The other lung fie lds are clear. There is no heart failure. There is no pleural effusion. There are chest leads. Bony t horax is intact. IMPRESSION: Right lower lobe masslike density suspicious for tumor that is new compared to old exam. Follow-up recommended. No heart failure.
[2020-02-27 21:06] LABS: Partial Thromboplastin Time 20.3 sec (22.0-30.0)
[2020-02-27 21:33] LABS: Amorphous Sediment,Urine Rare /hpf; Appearance,Urine Cloudy (Clear); Bilirubin,Urine Negative (Negative); Blood,Urine Negative (Negative); Color,Urine Yellow; Glucose,Urine (UA) Negative (Negative); Hyaline Casts,Urine 3 /lpf (0-2); Ketones,Urine Negative (Negative); Leukocyte Esterase,Urine Trace (Negative); Mucus,Urine Rare /hpf; Nitrite,Urine Negative (Negative); PH, Urine 5.5 (5.0-8.0); Protein,Urine Negative (Negative); RBC,Urine <1 /hpf (0-5); Specific Gravity,Urine 1.012 (1.001-1.035); Squamous Epithelial Cell,Urine 1 /hpf (0-4); Urobilinogen,Urine <2.0 mg/dL (<2.0); WBC,Urine 2 /hpf (0-5)
[2020-02-28 07:51] LABS: Glucose,Whole Blood 194 mg/dL (75-99)
[2020-02-28 10:48] LABS: Glucose,Whole Blood 259 mg/dL (75-99)
[2020-02-28 11:31] VITALS: BP 109/62; PULSE 64; RESP 16; TEMP 97.7
[2020-02-28] MEDS: INSULIN ASPART (NovoLOG) 100 UNIT/ML VIAL SQ SCH ×2 (12:36→17:41)
[2020-02-28] MEDS ORDERED: prednisoLONE ACETATE 1% OPHTH DROPS 5 ML BTL BOTH EYES SCH (12:45)
--- NOTE | 2020-02-28 12:56 | P.HPIM ---
History of Present Illness 79-year-old pleasant female with history of Parkinson's was brought in because of excessive drowsiness and sleepiness. Patient denied any fever chills nausea vomiting patient doesn't have any weakness anywhere no other neurological symptoms. Patient does have some dementia but apparently she is bit more confused than usual. was present at the bedside. Takes care of the patient. Patient is much better and at her baseline now patient does have some weakness uses a walker at home. Patient underwent workup for sepsis patient is negative for sepsis is not significant for urinary tract infection patient does take Bentyl for as-needed basis for diarrhea, meclizine, Mirabegron for overactive bladder and Namenda for early and mild dementia. Patient denied any fever chills. Neurology was consulted from ER neurology will evaluate the patient. CT of the head did not show any significant abnormality Review of Systems REVIEW OF SYSTEMS: CONSTITUTIONAL: No fever, no malaise, no fatigue. HEENT: No recent visual problems or hearing problems. Denied any sore throat. CARDIOVASCULAR: No chest pain, orthopnea, PND, no palpitations, no syncope. PULMONARY: No shortness of breath, no cough, no hemoptysis. GASTROINTESTINAL: No diarrhea, no nausea, no vomiting, no abdominal pain. NEUROLOGICAL: No headaches, no weakness, no numbness. HEMATOLOGICAL: Denies any bleeding or petechiae. GENITOURINARY: Denies any burning micturition, frequency, or urgency. MUSCULOSKELETAL/RHEUMATOLOGICAL: Denies any joint pain, swelling, or any muscle pain. ENDOCRINE: Denies any polyuria or polydipsia. The rest of the 14-point review of systems is negative. Past Medical History Past Medical History: Cancer, CVA/TIA, Diabetes Mellitus, GERD/Reflux, Hyperl ipidemia, Hypertension, Osteoarthritis (OA) Additional Past Medical History / Comment(s): SKIN CANCER, INCONTINENCE History of Any Multi-Drug Resistant Organisms: None Reported Past Surgical History: Cholecystectomy, Joint Replacement Additional Past Surgical History / Comment(s): LEFT PARTIAL KNEE REPLACEMNT, RIGHT EYE -[facility] TRANSPLANT Past Anesthesia/Blood Transfusion Reactions: Motion Sickness, Postoperative Nausea & Vomiting (PONV) Additional Past Anesthesia/Blood Transfusion Reaction / Comment(s): ONE TIME THEY STARTED CUTTING AND I WASN'T ASLEEP Past Psychological History: Anxiety Additional Psychological History / Comment(s): PT STATES SHE HAS ALITTLE DEPRESSION BUT IS NOT SUICIDAL. SHE RESIDES WITH HER SPOUSE. SHE HAS DRIVEN IN QUITE SOME TIME BUT SPOUSE DRIVES. SHE IS INDEPENDENT WITH HER ADLS. Smoking Status: Never smoker Past Alcohol Use History: None Reported Past Drug Use History: None Reported - Past Family History Sister(s) Family Medical History: Cancer Additional Family Medical History / Comment(s): BREAST AND BONE CANCER Father Family Medical History: Cancer Additional Family Medical History / Comment(s): SKIN CANCER Medications and Allergies Home Medications Medication Instructions Recorded Confirmed Type Metoprolol Tartrate [Lopressor] 12.5 mg PO DAILY 05/15/14 02/27/20 History Atorvastatin [Lipitor] 40 mg PO HS 05/03/16 02/27/20 History Insulin Detemir (Levemir) [Levemir] 35 unit SQ HS 05/03/16 02/27/20 History Insulin Aspart [NovoLOG Flexpen] See Protocol SQ AC-TID 10/17/16 02/27/20 History Clopidogrel [Plavix] 75 mg PO DAILY #30 tab 10/20/16 02/27/20 Rx Carbidopa-Levodopa 10-100 mg 1 tab PO TID 02/27/20 02/27/20 History [Sinemet 10-100 mg] Glimepiride [Amaryl] 1 mg PO AC-LUNCH 02/27/20 02/27/20 History Memantine [Namenda] 10 mg PO DAILY 02/27/20 02/27/20 History Mirabegron [Myrbetriq] 50 mg PO DAILY 02/27/20 02/27/20 History Sodium Chloride 5% Ophth Oint 1 applic BOTH EYES DAILY 02/27/20 02/27/20 History [Ashwini 128] prednisoLONE ACETATE 1% OPHTH 1 drops BOTH EYES MOWEFR 02/27/20 02/27/20 History [Pred Forte 1%] Dicyclomine [Bentyl] 20 mg PO BID PRN #0 02/28/20 02/27/20 Rx Meclizine [Antivert] 12.5 mg PO BID PRN #0 02/28/20 02/27/20 Rx Allergies Allergy/AdvReac Type Severity Reaction Status Date / Time pioglitazone HCl [From Actos] Allergy Rash/Hives Verified 02/27/20 21:40 sulfamethoxazole Allergy Unknown Verified 02/27/20 21:40 [From Bactrim] trimethoprim [From Bactrim] Allergy Unknown Verified 02/27/20 21:40 moxifloxacin HCl AdvReac Mild Nausea & Verified 02/27/20 21:40 [From Avelox] Vomiting cephalexin monohydrate AdvReac Nausea & Verified 02/27/20 21:40 [From Keflex] Vomiting Physical Exam Vitals: Vital Signs Temp Pulse Pulse Resp BP BP Pulse Ox 02/28/20 11:29 97.7 F 64 16 109/62 95 02/28/20 05:21 97.4 F L 59 L 18 114/52 99 02/28/20 00:00 16 02/27/20 22:58 97.6 F 60 16 152/74 99 02/27/20 22:09 61 19 134/79 98 02/27/20 20:52 16 02/27/20 20:00 98.1 F 63 18 134/81 99 Intake and Output 02/27/20 02/28/20 02/28/20 22:59 06:59 14:59 Other: Voiding Method Bedside Commode Bedside Commode Diaper Diaper # Voids 1 1 # Bowel Movements 0 Weight 89.902 kg 87 kg PHYSICAL EXAMINATION: GENERAL: The patient is alert and oriented x3, not in any acute distress. Well developed, well nourished. She appears to be bit slow HEENT: Pupils are round and equally reacting to light. EOMI. No scleral icterus. No conjunctival pallor. Normocephalic, atraumatic. No pharyngeal erythema. No thyromegaly. CARDIOVASCULAR: S1 and S2 present. No murmurs, rubs, or gallops. PULMONARY: Chest is clear to auscultation, no wheezing or crackles. ABDOMEN: Soft, nontender, nondistended, normoactive bowel sounds. No palpable organomegaly. MUSCULOSKELETAL: No joint swelling or deformity. EXTREMITIES: No cyanosis, clubbing, or pedal edema. NEUROLOGICAL: Gross neurological examination did not reveal any focal deficits. Does have generalized weakness SKIN: No rashes. Results CBC & Chem 7: 02/27/20 20:13 02/27/20 20:13 Labs: Abnormal Lab Results - Last 24 Hours (Table) 02/27/20 02/27/20 02/27/20 Range/Units 19:58 20:13 20:13 Plt Count 124 L (150-450) k/uL APTT 20.3 L (22.0-30.0) sec BUN (7-17) mg/dL Creatinine (0.52-1.04) mg/dL Glucose (74-99) mg/dL POC Glucose (mg/dL) (75-99) mg/dL Plasma Lactic Acid Allen (0.7-2.0) mmol/L Creatine Kinase (30-135) U/L Total Protein (6.3-8.2) g/dL Urine Appearance Cloudy H (Clear) Ur Leukocyte Esterase Trace H (Negative) Amorphous Sediment Rare H (None) /hpf Hyaline Casts 3 H (0-2) /lpf Urine Mucus Rare H (None) /hpf 02/27/20 02/27/20 02/28/20 Range/Units 20:13 20:13 07:49 Plt Count (150-450) k/uL APTT (22.0-30.0) sec BUN 30 H (7-17) mg/dL Creatinine 1.13 H (0.52-1.04) mg/dL Glucose 105 H (74-99) mg/dL POC Glucose (mg/dL) 194 H (75-99) mg/dL Plasma Lactic Acid Allen <0.5 L (0.7-2.0) mmol/L Creatine Kinase 28 L (30-135) U/L Total Protein 6.0 L (6.3-8.2) g/dL Urine Appearance (Clear) Ur Leukocyte Esterase (Negative) Amorphous Sediment (None) /hpf Hyaline Casts (0-2) /lpf Urine Mucus (None) /hpf 02/28/20 Range/Units 10:45 Plt Count (150-450) k/uL APTT (22.0-30.0) sec BUN (7-17) mg/dL Creatinine (0.52-1.04) mg/dL Glucose (74-99) mg/dL POC Glucose (mg/dL) 259 H (75-99) mg/dL Plasma Lactic Acid Allen (0.7-2.0) mmol/L Creatine Kinase (30-135) U/L Total Protein (6.3-8.2) g/dL Urine Appearance (Clear) Ur Leukocyte Esterase (Negative) Amorphous Sediment (None) /hpf Hyaline Casts (0-2) /lpf Urine Mucus (None) /hpf Thrombosis Risk Factor Assmnt - Choose All That Apply Any of the Below Risk Factors Present?: Yes Each Factor Represents 1 point: Obesity (BMI >25) Other Risk Factors: Yes Each Risk Factor Represents 3 Points: Age 75 years or older Other congenital or acquired thrombophilia - If yes, enter type in comment: No Thrombosis Risk Factor Assessment Total Risk Factor Score: 4 Thrombosis Risk Factor Assessment Level: Moderate Risk Assessment and Plan Plan: -Altered mental status, drowsiness: Secondary to toxicants abruptly from her medications and polypharmacy I'm decreasing the dose of antidiarrheals and meclizine and instructed only to use it on as-needed basis. I will leave the decision of continuation of Namenda to neurology and neurology will abide that the patient patient doesn't appear to have any focal neurological deficits, possibility of TIA or CVA is low. If cleared by neurology patient will be discharged today. 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
[2020-02-28] MEDS ORDERED: SODIUM CHLORIDE 0.9% 1,000 ML IV SCH (13:00)
--- NOTE | 2020-02-28 14:14 | CT ---
EXAMINATION TYPE: CT chest wo con DATE OF EXAM: 02/28/2020 COMPARISON: None HISTORY: Trouble breathing CT DLP: [address] of the chest was performed with lung and mediastinal window settings submitted. The la ck of contrast limits evaluation of the vascular, mediastinal and parenchymal structures including th e upper abdomen. LUNGS: Right infrahilar pulmonary mass measuring 4.5 x 5.0 x 7.0 cm. No additional masses identified. Suspect right hilar adenopathy measuring 1.8 cm. Calcified nodule right upper lobe. Strandy basilar atelectasis or parenchymal scarring. MEDIASTINUM/SHERRI: Thoracic aorta is of normal caliber with limited evaluation given lack of contrast . The heart is not enlarged. No evidence for mediastinal mass. No mediastinal lymph nodes greater than 1cm. UPPER ABDOMEN: No significant abnormality is seen. OTHER: No significant other abnormality. IMPRESSION: 1. Right infrahilar pulmonary mass felt to reflect malignancy until proven otherwise.
--- NOTE | 2020-02-28 14:43 | P.CNPUL ---
History of Present Illness Consult date: 02/28/20 Reason for consult: cough Chief complaint: Confusion/altered mental status History of present illness: This is a 79-year-old female with advanced Parkinson's disease she came into the hospital with one-day history of increased confusion, thought to be related to multiple medications Parkinson's disease and some dehydration, patient is being planned for discharge later on today, she has the x-ray performed incidentally found to have on the lateral view right-sided 5 cm lung mass/nodule I was asked to evaluate the patient, most of the data obtained from the , patient is a nonsmoker, however she does have history of chronic cough, her prior chest x- ray was done in 2017 did not show mass at that time, it seemed like on review of the CAT scan mass is present in the superior segment of right lower lobe, sergio ent also has a right hilar adenopathy of 1.8 cm in size along with calcified lymph nodes Review of Systems All systems: negative Past Medical History Past Medical History: Cancer, CVA/TIA, Diabetes Mellitus, GERD/Reflux, Hyperlipidemia, Hypertension, Osteoarthritis (OA) Additional Past Medical History / Comment(s): SKIN CANCER, INCONTINENCE History of Any Multi-Drug Resistant Organisms: None Reported Past Surgical History: Cholecystectomy, Joint Replacement Additional Past Surgical History / Comment(s): LEFT PARTIAL KNEE REPLACEMNT, RIGHT EYE -CORNEA TRANSPLANT Past Anesthesia/Blood Transfusion Reactions: Motion Sickness, Postoperative Nausea & Vomiting (PONV) Additional Past Anesthesia/Blood Transfusion Reaction / Comment(s): ONE TIME THEY STARTED CUTTING AND I WASN'T ASLEEP Past Psychological History: Anxiety Additional Psychological History / Comment(s): PT STATES SHE HAS ALITTLE DEPRESSION BUT IS NOT SUICIDAL. SHE RESIDES WITH HER SPOUSE. SHE HAS DRIVEN IN QUITE SOME TIME BUT SPOUSE DRIVES. SHE IS INDEPENDENT WITH HER ADLS. Smoking Status: Never smoker Past Alcohol Use History: None Reported Past Drug Use History: None Reported - Past Family History Sister(s) Family Medical History: Cancer Additional Family Medical History / Comment(s): BREAST AND BONE CANCER Father Family Medical History: Cancer Additional Family Medical History / Comment(s): SKIN CANCER Medications and Allergies Home Medications Medication Instructions Recorded Confirmed Type Atorvastatin [Lipitor] 40 mg PO HS 05/03/02/27/20 History Insulin Detemir (Levemir) [Levemir] 35 unit SQ HS 05/03/16 02/27/20 History Insulin Aspart [NovoLOG Flexpen] See Protocol SQ AC-TID 10/17/16 02/27/20 History Carbidopa-Levodopa 10-100 mg 1 tab PO TID 02/27/20 02/27/20 History [Sinemet 10-100 mg] Glimepiride [Amaryl] 1 mg PO AC-LUNCH 02/27/20 02/27/20 History Memantine [Namenda] 10 mg PO DAILY 02/27/20 02/27/20 History Mirabegron [Myrbetriq] 50 mg PO DAILY 02/27/20 02/27/20 History Sodium Chloride 5% Ophth Oint 1 applic BOTH EYES DAILY 02/27/20 02/27/20 History [Ashwini 128] prednisoLONE ACETATE 1% OPHTH 1 drops BOTH EYES MOWEFR 02/27/20 02/27/20 History [Pred Forte 1%] Dicyclomine [Bentyl] 20 mg PO BID PRN #0 02/28/20 02/27/20 Rx Meclizine [Antivert] 12.5 mg PO BID PRN #0 02/28/20 02/27/20 Rx Allergies Allergy/AdvReac Type Severity Reaction Status Date / Time pioglitazone HCl [From Actos] Allergy Rash/Hives Verified 02/27/20 21:40 sulfamethoxazole Allergy Unknown Verified 02/27/20 21:40 [From Bactrim] trimethoprim [From Bactrim] Allergy Unknown Verified 02/27/20 21:40 moxifloxacin HCl AdvReac Mild Nausea & Verified 02/27/20 21:40 [From Avelox] Vomiting cephalexin monohydrate AdvReac Nausea & Verified 02/27/20 21:40 [From Keflex] Vomiting Physical Exam Vitals: Vital Signs Temp Pulse Pulse Resp BP BP Pulse Ox 02/28/20 11:29 97.7 F 64 16 109/62 95 02/28/20 05:21 97.4 F L 59 L 18 114/52 99 02/28/20 00:00 16 02/27/20 22:58 97.6 F 60 16 152/74 99 02/27/20 22:09 61 19 134/79 98 02/27/20 20:52 16 02/27/20 20:00 98.1 F 63 18 134/81 99 Intake and Output 02/27/20 02/28/20 02/28/20 22:59 06:59 14:59 Other: Voiding Method Bedside Commode Bedside Commode Diaper Diaper # Voids 1 1 # Bowel Movements 0 Weight 89.902 kg 87 kg - Constitutional General appearance: average body habitus, cooperative, disheveled, mild distress - EENT Eyes: EOMI, PERRLA Ears: bilateral: normal - Neck Carotids: bilateral: upstroke normal Thyroid: bilateral: normal size - Respiratory Respiratory: bilateral: CTA - Cardiovascular Rhythm: regular Heart sounds: normal: S1, S2 - Integumentary Integumentary: normal, normal turgor - Neurologic Neurologic: CNII-XII intact - Musculoskeletal Musculoskeletal: gait normal, generalized weakness, strength equal bilaterally - Psychiatric Psychiatric: A&O x's 3, appropriate affect, intact judgment & insight Results - Laboratory Findings CBC and BMP: 02/27/20 20:13 02/27/20 20:13 PT/INR, D-dimer PT 9.8 sec (9.0-12.0) 02/27/20 20:13 INR 0.9 (<1.2) 02/27/20 20:13 Abnormal lab findings: Abnormal Labs 02/27/20 02/27/20 02/27/20 19:58 20:13 20:13 Plt Count 124 L APTT 20.3 L BUN Creatinine Glucose POC Glucose (mg/dL) Plasma Lactic Acid Allen Creatine Kinase Total Protein Urine Appearance Cloudy H Ur Leukocyte Esterase Trace H Amorphous Sediment Rare H Hyaline Casts 3 H Urine Mucus Rare H 02/27/20 02/27/20 02/28/20 20:13 20:13 07:49 Plt Count APTT BUN 30 H Creatinine 1.13 H Glucose 105 H POC Glucose (mg/dL) 194 H Plasma Lactic Acid Allen <0.5 L Creatine Kinase 28 L Total Protein 6.0 L Urine Appearance Ur Leukocyte Esterase Amorphous Sediment Hyaline Casts Urine Mucus 02/28/20 10:45 Plt Count APTT BUN Creatinine Glucose POC Glucose (mg/dL) 259 H Plasma Lactic Acid Allen Creatine Kinase Total Protein Urine Appearance Ur Leukocyte Esterase Amorphous Sediment Hyaline Casts Urine Mucus - Diagnostic Findings Chest x-ray: report reviewed, image reviewed CT scan - chest: report reviewed, image reviewed (Finding as noted above) Assessment and Plan Assessment: Right lower lobe lung mass Right-sided infrahilar adenopathy History of advanced Parkinson's disease Intravascular volume depletion and dehydration History of diabetes mellitus, skin cancer, bladder incontinence, dyslipidemia, GERD, history of CVA and TIA Plan: Discussed with the and patient at length about course of plan, patient will be scheduled for bronchoscopy and transbronchial lung biopsy under fluoroscopy she is on Plavix need to stop it for one week, will plan bronchoscopy next week possibly on Monday, procedure complication alternating with have been explained to the patient and her , Time with Patient: Greater than 30
--- NOTE | 2020-02-28 14:58 | P.CN ---
Psychiatric Consult - . Consult date: 02/28/20 Consult:: 02/28/20 14:52 IDENTIFYING DATA: This patient is a 79-year-old female currently lives with her in a house has 3 kids and is retired. HISTORY OF PRESENT ILLNESS: The patient presented to the hospital yesterday with altered mental status, weakness and decreased responsiveness and was found to be dehydrated. Patient had a computed tomography scan of her head yesterday which showed mild atrophy with no acute changes. Patient also had a chest x-ray which showed a right lower lobe mass like density suspicious for tumor. Nurse taking care of patient states that she was fairly confused when she came in however is doing better at this point. was sitting at the bedside and spoke with the typewriter operator automatic outside patient's room and claimed that she was fairly confused for the past 2 days however is slow to respond now and has been communicating better with him. Patient was evaluated by typewriter operator automatic in the room and appeared to be calm and cooperative. Patient was slow to respond at times however responded appropriately. She denied any issues with her mood and denying depression or anxiety at this time. She states that she is feeling better overall. She claims that "I wasn't acting right at home" was a reason why she came in to the hospital. She states that she slept well overnight. She was alert and oriented 3 knows who The current President is and has fair insight. At this time patient denies any suicidal or homical ideations, intent or plan. Patient denies any auditory, visual hallucinations and denies any paranoia or delusions. Patients admits to using no recreational drugs cigarettes or alcohol. PAST PSYCHIATRIC HISTORY: Patient denies any history of mental health issues or diagnoses. Patient denies being on any psychiatric medications. Patient denies any previous psychiatric hospitalizations. Patient denies any psychiatric outpatient follow-up. Patient denies any history of suicide attempts in the past. PAST MEDICAL HISTORY: Cancer CVA, diabetes mellitus, GERD, hyperlipidemia, hypertension, osteoarthritis. ALLERGIES: as per EMR. CHEMICAL DEPENDENCY HISTORY: as per HPI. 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 She claims that she completed high school. She denies any legal problems. She currently lives in a house with her has 3 kids and is retired.. MENTAL STATUS EXAM: General Appearance: Patient appears to be stated age is overweight, alert, pleasant, and cooperative, slow to respond. Patient appears to have fair hygiene and grooming wearing hospital gown with fair eye contact. Behavior: Patient is calmly sitting on the chair without any agitated behavior. Speech: Patient's speech is fluent and nonpressured. Slow to respond, soft tone of voice. Mood/Affect: Patient reports their mood is "fine", affect is congruent Suicidality/Homicidality: Patient denies having any suicidal or homicidal idea tion intent or plan. Perceptions: Patient denies any visual hallucinations and denies any auditory hallucinations Though content/process: There is no evidence of any delusional thought content and thought process is linear and goal-directed. [place]. Memory and concentration: AOX3, grossly intact for the purposes of this session. Can spell "WORLD" backwards Judgment and insight: Limited IMPRESSIONS: Delirium, likely etiology toxic metabolic, dehydration and possibly medications PLAN: -At this time patient DOES NOT meet criteria for inpatient psychiatric admission. -Delirium precautions recommended with patient including - avoiding use of narcotics and ADMINISTRATIVE DIETITIAN sedatives, limit anticholinergic medications when possible, frequent re-orientation, minimize use of restraints, open window shades during the day and close them at night -Would recommend the following medication changes/additions: Counseled patient on her medications and to limit using benzodiazepines, anticholinergic medic ations and opiates which can trigger delirium. At this time patient is not on any of these medications and would recommend continue holding them/limiting them if possible. -Psychiatry will sign off at this point, please contact with any questions.
--- NOTE | 2020-02-28 15:51 | P.CNNES ---
History of Present Illness Consult date: 02/28/20 Requesting physician: Willy Haley Reason for Consult: Altered mental status History of Present Illness: Patient is a 79-year-old female arrived to the hospital yesterday at 8 PM for not acting right, sleeping a lot for last couple weeks, off and on. No reported history of seizures, or blank stares. She just has been sleeping a lot. Yesterday she appeared more confused, trying to eat off the empty plate. Patient states she has been feeling tired a lot. Patient does not take any pain medications, does not drink alcohol. No focal symptoms have been reported like slurred speech, facial droop more than baseline, numbness tingling or focal weakness. Patient has been diagnosed with Parkinson's disease. She states she is not steady on her feet. She has been using walker for about last 6 months. She does not use it every day. Patient admits to having handwriting getting smaller and slopes up. Patient's Vital signs on arrival showed blood pressure 134/81, pulse rate [address] head showed mild atrophy. No acute intracranial abnormality. There is significant clearing of the sphenoid sinusitis compared to old exam. Chest x- ray showed right lower lobe 5 cm mass like density suspicious for tumor that is new compared to old exam 10/18/2016. Follow-up recommended. EKG shows normal sinus rhythm. On review of records, patient had a EEG on 10/20/2016 which revealed background slowing consistent with encephalopathy. Patient had a carotid Doppler on 10/18/2016 which revealed mild plaque noted bilateral bifurcations. No increased velocities. No significant stenosis. 2-D echo from 10/18/2016 showed mild concentric LVH, EF 55-60%, L he is moderately dilated. Mild aortic valve sclerosis. Patient has history of CVA, for which she has been on Plavix. Patient's UA showed cloudy urine, trace leukocyte esterase. Troponin, CPK normal. Liver panel normal. Chem-7 shows normal electrolytes, BUN 30, creatinine 1.13. CBC normal. Patient's last hemoglobin A1c 7.8 on 04/25/2018. Patient's states that she looks much better, feels she is 90-95% back to baseline. Review of Systems As above in detail. Otherwise all 14 point of review of systems completely unremarkable. Past Medical History Past Medical History: Cancer, CVA/TIA, Diabetes Mellitus, GERD/Reflux, Hyperlipidemia, Hypertension, Osteoarthritis (OA) Additional Past Medical History / Comment(s): SKIN CANCER, INCONTINENCE History of Any Multi-Drug Resistant Organisms: None Reported Past Surgical History: Cholecystectomy, Joint Replacement Additional Past Surgical History / Comment(s): LEFT PARTIAL KNEE REPLACEMNT, RIGHT EYE -CORNEA TRANSPLANT Past Anesthesia/Blood Transfusion Reactions: Motion Sickness, Postoperative Nausea & Vomiting (PONV) Additional Past Anesthesia/Blood Transfusion Reaction / Comment(s): ONE TIME THEY STARTED CUTTING AND I WASN'T ASLEEP Past Psychological History: Anxiety Additional Psychological History / Comment(s): PT STATES SHE HAS ALITTLE DEPRESSION BUT IS NOT SUICIDAL. SHE RESIDES WITH HER SPOUSE. SHE HAS DRIVEN IN QUITE SOME TIME BUT SPOUSE DRIVES. SHE IS INDEPENDENT WITH HER ADLS. Smoking Status: Never smoker Past Alcohol Use History: None Reported Past Drug Use History: None Reported - Past Family History Sister(s) Family Medical History: Cancer Additional Family Medical History / Comment(s): BREAST AND BONE CANCER Father Family Medical History: Cancer Additional Family Medical History / Comment(s): SKIN CANCER Medications and Allergies Home Medications Medication Instructions Recorded Confirmed Type Atorvastatin [Lipitor] 40 mg PO HS 05/03/16 02/27/20 History Insulin Detemir (Levemir) [Levemir] 35 unit SQ HS 05/03/16 02/27/20 History Insulin Aspart [NovoLOG Flexpen] See Protocol SQ AC-TID 10/17/16 02/27/20 History Carbidopa-Levodopa 10-100 mg 1 tab PO TID 02/27/20 02/27/20 History [Sinemet 10-100 mg] Glimepiride [Amaryl] 1 mg PO AC-LUNCH 02/27/20 02/27/20 History Memantine [Namenda] 10 mg PO DAILY 02/27/20 02/27/20 History Mirabegron [Myrbetriq] 50 mg PO DAILY 02/27/20 02/27/20 History Sodium Chloride 5% Ophth Oint 1 applic BOTH EYES DAILY 02/27/20 02/27/20 History [Ashwini 128] prednisoLONE ACETATE 1% OPHTH 1 drops BOTH EYES MOWEFR 02/27/20 02/27/20 History [Pred Forte 1%] Dicyclomine [Bentyl] 20 mg PO BID PRN #0 02/28/20 02/27/20 Rx Meclizine [Antivert] 12.5 mg PO BID PRN #0 02/28/20 02/27/20 Rx Allergies Allergy/AdvReac Type Severity Reaction Status Date / Time pioglitazone HCl [From Actos] Allergy Rash/Hives Verified 02/27/20 21:40 sulfamethoxazole Allergy Unknown Verified 02/27/20 21:40 [From Bactrim] trimethoprim [From Bactrim] Allergy Unknown Verified 02/27/20 21:40 moxifloxacin HCl AdvReac Mild Nausea & Verified 02/27/20 21:40 [From Avelox] Vomiting cephalexin monohydrate AdvReac Nausea & Verified 02/27/20 21:40 [From Keflex] Vomiting Physical Examination - Vital Signs Vital Signs: Vital Signs Temp Pulse Pulse Resp BP BP Pulse Ox 02/28/20 05:21 97.4 F L 59 L 18 114/52 99 02/28/20 00:00 16 02/27/20 22:58 97.6 F 60 16 152/74 99 02/27/20 22:09 61 19 134/79 98 02/27/20 20:52 16 02/27/20 20:00 98.1 F 63 18 134/81 99 Intake and Output 02/27/20 02/28/20 02/28/20 22:59 06:59 14:59 Other: Voiding Method Bedside Commode Bedside Commode Diaper Diaper # Voids 1 1 # Bowel Movements 0 Weight 89.902 kg 87 kg On examination patient is an elderly female, in no acute distress. Patient is alert and awake. Patient has somewhat slow latency time to answer questions. Patient is fully oriented. Speech and language functions are normal. Attention and concentration fund of knowledge is adequate. On cranial nerve examination pupils are round and reactive to light, visual de are full on confrontation, extraocular muscles are intact with no nystagmus. Patient has mild right facial asymmetry, which is chronic. Tongue protrudes to the midline. Palatal elevation and sensation normal hearing and shoulder shrug normal. On muscle strength testing there is no pronator drift, and the strength is normal in arms and legs distally and proximally. Reflexes are 1+ and plantars are downgoing. Patient appears bradykinetic. Patient has mildly increased tone in bilateral upper limbs. No tremors noted at rest. Patient admits to having smaller handwriting and it goes uphill. Patient had difficulty arising from the chair, and made several attempts before able to get up from chair. She has masked face. Decrease frequency of blinking. She walks with a slow shuffling gait, uses a walker. No ataxia for [id number] or [id number] testing. Bulk of muscles normal. On general examination there is no carotid bruit or murmur, peripheral pulses are present. Chest is clear, S1 and S2 audible. Abdomen soft nontender. Results - Laboratory Findings CBC and BMP: 02/27/20 20:13 02/27/20 20:13 Abnormal Lab Findings: Abnormal Labs 02/27/20 02/27/20 02/27/20 19:58 20:13 20:13 Plt Count 124 L APTT 20.3 L BUN Creatinine Glucose POC Glucose (mg/dL) Plasma Lactic Acid Allen Creatine Kinase Total Protein Urine Appearance Cloudy H Ur Leukocyte Esterase Trace H Amorphous Sediment Rare H Hyaline Casts 3 H Urine Mucus Rare H 02/27/20 02/27/20 02/28/20 20:13 20:13 07:49 Plt Count APTT BUN 30 H Creatinine 1.13 H Glucose 105 H POC Glucose (mg/dL) 194 H Plasma Lactic Acid Allen <0.5 L Creatine Kinase 28 L Total Protein 6.0 L Urine Appearance Ur Leukocyte Esterase Amorphous Sediment Hyaline Casts Urine Mucus 02/28/20 10:45 Plt Count APTT BUN Creatinine Glucose POC Glucose (mg/dL) 259 H Plasma Lactic Acid Allen Creatine Kinase Total Protein Urine Appearance Ur Leukocyte Esterase Amorphous Sediment Hyaline Casts Urine Mucus Assessment and Plan Assessment: * Parkinson's disease, mild to moderate in degree. Excessive fatigue, tiredness may be mild delirium, or may be related to Parkinson's disease, although also may be related to lung mass. * Lung mass, rule out lung cancer. * History of CVA, stable. * Hypertension * Diabetes Plan: * Patient has at least [id number] parkinsonism. We will increase the dose of Sinemet to 25/100, 4 times a day. * We will check B12, folate, TSH. * Patient has lung mass. Patient will be seen by pulmonary medicine. * Continue Plavix 75 mg daily for stroke prevention. * Neurology coverage not available over the weekend. Please perfect serve if any questions over the weekend.
[2020-02-28] MEDS ORDERED: CARBIDOPA-LEVODOPA 10-100 MG 1 EACH TAB PO SCH (16:00)
[2020-02-28 17:03] LABS: Glucose,Whole Blood 169 mg/dL (75-99)
[2020-02-28] MEDS ORDERED: CARBIDOPA-LEVODOPA 25-100 MG 1 EACH TAB PO SCH (18:00)
[2020-02-28] MEDS ORDERED: INSULIN DETEMIR (LEVEMIR) 100 UNIT/ML SYR SQ SCH (21:00)
[2020-02-28] MEDS ORDERED: ATORVASTATIN 40 MG TAB PO SCH (21:00)
[2020-02-29 01:10] LABS: Folate, Serum >24.0 ng/mL
[2020-02-29 03:19] LABS: Hemoglobin A1C 8.4 % (4.0-6.0)
[2020-02-29] MEDS ORDERED: SODIUM CHLORIDE 5% OPHTH OINT 3.5 GM TUBE BOTH EYES SCH (09:00)
[2020-02-29] MEDS ORDERED: NON FORMULARY DRUG (Mirabegron [Myrbetriq] 50 MG) PO SCH (09:00)
[2020-02-29] MEDS ORDERED: CLOPIDOGREL 75 MG TAB PO SCH (09:00)
[2020-02-29] MEDS ORDERED: METOPROLOL TARTRATE 12.5 MG TAB PO SCH (09:00)
[2020-02-29] MEDS ORDERED: GLIMEPIRIDE 1 MG TAB PO SCH (12:30)
== END 2020-02-28 18:33 | disposition home or self-care (01) ==
LOC: EC 19:56 → 5NMEDONC 21:04
PROVIDERS: ADMIT Hospitalist; ATTEND Hospitalist
DX: R41.82 Altered mental status, unspecified (principal); T50.915A Adverse effect of multiple unspecified drugs, medicaments and biological substances, initial encounter; N17.9 Acute kidney failure, unspecified; G20 Parkinson's disease; F02.80 Dementia in other diseases classified elsewhere, unspecified severity, without behavioral disturbance, psychotic disturbance, mood disturbance, and anxiety; E86.0 Dehydration; I10 Essential (primary) hypertension; E78.5 Hyperlipidemia, unspecified; E11.9 Type 2 diabetes mellitus without complications; M19.90 Unspecified osteoarthritis, unspecified site; K21.9 Gastro-esophageal reflux disease without esophagitis; R32 Unspecified urinary incontinence; F41.9 Anxiety disorder, unspecified; R91.8 Other nonspecific abnormal finding of lung field; I35.8 Other nonrheumatic aortic valve disorders; I65.23 Occlusion and stenosis of bilateral carotid arteries; F32.9 Major depressive disorder, single episode, unspecified; N32.81 Overactive bladder; E66.9 Obesity, unspecified; Z68.30 Body mass index [BMI] 30.0-30.9, adult; R59.0 Localized enlarged lymph nodes; Z79.4 Long term (current) use of insulin; Z79.02 Long term (current) use of antithrombotics/antiplatelets; Z79.899 Other long term (current) drug therapy; Z88.1 Allergy status to other antibiotic agents; Z88.2 Allergy status to sulfonamides; Z88.8 Allergy status to other drugs, medicaments and biological substances; Z86.73 Personal history of transient ischemic attack (TIA), and cerebral infarction without residual deficits; Z96.652 Presence of left artificial knee joint; Z94.7 Corneal transplant status; Z85.828 Personal history of other malignant neoplasm of skin; Z90.49 Acquired absence of other specified parts of digestive tract; Z80.3 Family history of malignant neoplasm of breast; Z80.8 Family history of malignant neoplasm of other organs or systems
CPT/HCPCS: 96366; 96365; 96375; 99285; 36415; 93005; 97162; 83880; 80053; 84443; 82607; 82140; 82550; 82746; 83605; 83735; 84100; 84484; 85025; 85610; 85730; 81001; 83036; 71046; 70450; 71250; G0378 ×2; J2310; J0295

== ENCOUNTER → 2020-03-27 | Outpatient (CLI) | payer MEDICARE ==
--- NOTE | 2020-03-28 20:17 | PE ---
EXAMINATION TYPE: PET CT fusion skull to thigh DATE OF EXAM: 03/27/2020 COMPARISON: Chest CT February 28, 2020. CT abdomen and pelvis May 15, 2014 HISTORY: Right upper lobe solitary pulmonary nodule. TECHNIQUE: Following the intravenous administration of 13.47 mCi of F-18 FDG, whole body images are performed from the skull base to the midthigh. Images are reviewed on the computer in the coronal, a xial, and sagittal planes. Reconstructed rotating images are created on independent workstation and reviewed on the computer. A noncontrast CT is performed in conjunction with the PET scan. SCAN: Initial Scan FINDINGS: SKULL BASE AND NECK: No areas of suspicious hypermetabolic uptake. CHEST, MEDIASTINUM, AND HILAR REGION: Corresponding to recent CT there is persistent superior 4.8 x 4 .4 cm right lower lobe mass near the hilum axial image 81, max SUV is 5.75. No additional areas of suspicious hypermetabolic uptake. No suspicious thoracic adenopathy noted. ABDOMEN AND PELVIS: Normal excretion is present. No adrenal mass is noted. No suspicious hypermetabol ic uptake. OSSEOUS STRUCTURES: No suspicious hypermetabolic uptake. OTHER CT: Coronary artery calcification is present which is noted marker for underlying coronary ruth ry disease. Incidental 4 to 5 mm calcified right middle lobe nodule or granuloma axial image 84 Cholecystectomy clips. Some cortical thinning both kidneys. Moderate to severe disc space narrowing lumbosacral junction IMPRESSION: Abnormal hypermetabolic uptake in the nearly 5.0 cm central superior right lower lobe mas s worrisome for neoplasm. Bronchoscopy for tissue sampling is advised. No suspicious thoracic adenopa thy or metastatic disease. TNM staging: T2b N0 M0 ACC staging: IIa
== END | disposition home or self-care (01) ==
LOC: RADPETMAIN 15:15
PROVIDERS: ATTEND Internal Medicine Sleep Medicine
DX: R91.8 Other nonspecific abnormal finding of lung field (principal)
CPT/HCPCS: 78815; A9552

== ENCOUNTER → 2020-06-26 | Outpatient (CLI) | payer MEDICARE ==
--- NOTE | 2020-06-28 14:31 | PE ---
Nuclear medicine PET/CT HISTORY: Lung carcinoma, subsequent Patient received 9.1 mCi F-18 FDG intravenously and delayed scanning was performed from skull base to the mid thighs. Localization and attenuation correction CT scan was performed. Correlation prior nuclear medicine PET/CT 03/27/2020 Chest and neck: Patient's mass in the right lower lobe is again seen measuring approximately 5.1 cm i n AP dimension by 5.1 cm in transverse dimension as compared to prior exam when it measured approxima tely 4.4 x 4.8 cm, there is associated hypermetabolic uptake, mildly decreased as compared to prior. There is no pleural or pericardial effusion. Bandlike areas of increased attenuation at the lung base s may reflect scarring or atelectasis. There are coronary artery calcifications. No mediastinal, axil maritza, or hilar adenopathy. No cervical or supraclavicular adenopathy. ABDOMEN: Uptake of associated with the cecum and terminal ileum is likely physiologic. No retroperito katt adenopathy, no evident adrenal mass. Patient is post cholecystectomy. There is no ascites. Uteru s is somewhat bulky suggesting underlying fibroids. No pelvic adenopathy or inguinal adenopathy. Osseous structures are stable. Uptake associated with the right antecubital region is seen, there is additional uptake within the soft tissues posterior to the elbow region which may be related to the i njection. IMPRESSION: Findings consistent with patient's history of lung carcinoma as described.
== END | disposition home or self-care (01) ==
LOC: RADPETMAIN 07:26
PROVIDERS: ATTEND Radiology Radiation Oncology
DX: C34.31 Malignant neoplasm of lower lobe, right bronchus or lung (principal)
CPT/HCPCS: 78815; A9552

== ENCOUNTER → 2020-09-04 | Outpatient (CLI) | payer MEDICARE ==
--- NOTE | 2020-09-04 11:56 | CT ---
EXAMINATION TYPE: CT chest wo/w con DATE OF EXAM: 09/04/2020 COMPARISON: PET CT fusion 06/26/[address] chest 02/28/2020 HISTORY: Lung cancer CT DLP: 1285 mGycm Automated exposure control for dose reduction was used. CONTRAST: CT scan of the chest is performed without and with IV Contrast, patient injected with 80 mL of Isovue 300. FINDINGS: LUNGS: Right lower lobe mass persists and currently measures 4.6 x 4.4 cm versus 4.9 x 4.5 cm previou sly. Mild spiculation noted. No additional nodules or masses seen. The right upper lobe. MEDIASTINUM: There are no greater than 1 cm hilar or mediastinal lymph nodes. No pericardial effusi on is seen. Thoracic aorta is of normal caliber. The heart is not enlarged. UPPER ABDOMEN: No significant abnormality appreciated. OTHER: No additional significant abnormality is seen. IMPRESSION: 1. Right lower lobe mass persists and is slightly smaller in size.
== END | disposition home or self-care (01) ==
LOC: RADCTMAIN 10:04
PROVIDERS: ATTEND Radiology Radiation Oncology
DX: R91.8 Other nonspecific abnormal finding of lung field (principal); C34.31 Malignant neoplasm of lower lobe, right bronchus or lung
CPT/HCPCS: 82565; 84520; 71270; 36415; Q9967

== ENCOUNTER → 2020-11-30 | Outpatient (CLI) | payer MEDICARE ==
--- NOTE | 2020-11-30 14:59 | CT ---
EXAMINATION TYPE: CT chest wo/w con DATE OF EXAM: 11/30/2020 COMPARISON: Most recent CT September 04, 2020. Most recent PET CT June 26, 2020 and older studies. HISTORY: follow up malignant neoplasm lung CT DLP: 800.6 mGycm. Automated Exposure Control for Dose Reduction was Utilized. TECHNIQUE: CT scan of the thorax is performed following without and with IV Contrast, patient inject ed with 80 mL of Isovue 300. FINDINGS: LUNGS: Persistent right hilar lobulated heterogeneous hypodense mass with some heterogeneous postcont rast enhancement measuring approximately 4.3 x 3.9 cm axial image 28 not significantly changed in siz e from most recent CT. Loss of a few air bronchograms noted from prior CT. There is new adjacent grou ndglass opacity along with anterior groundglass opacity at same level and organizing consolidations c ould reflect treatment change. This extends to the right diaphragm. No new significant right-sided vo lume loss. Mild linear scarring and/or atelectasis in the left lower lung. There is no pleural effu em or pneumothorax seen. The tracheobronchial tree is patent. Small anterior right midlung 5 mm ca lcified nodule or granuloma redemonstrated. MEDIASTINUM: There are no new greater than 1 cm hilar or mediastinal lymph nodes. No pericardial ef fusion is seen. Heart size stable and upper limits of normal. Coronary calcification redemonstrated which is noted marker for underlying coronary artery disease. OTHER: Exaggerated thoracic kyphosis with mild to moderate multilevel spurring. IMPRESSION: Persistent 4.3 cm central right lung neoplasm not significantly changed in size from most recent CT. No new suspicious mass or adenopathy noted. Adjacent groundglass opacities and organizing consolidations felt to reflect posttreatment change. Areas of developing acute infiltrate and/or ate lectasis not excluded.
== END | disposition home or self-care (01) ==
LOC: RADCTMAIN 12:46
PROVIDERS: ATTEND Radiology Radiation Oncology
DX: C34.91 Malignant neoplasm of unspecified part of right bronchus or lung (principal); R91.8 Other nonspecific abnormal finding of lung field
CPT/HCPCS: 82565; 84520; 71270; 36415; Q9967

== ENCOUNTER 2021-02-01 10:03 | Emergency (ER) | payer MEDICARE ==
[2021-02-01 10:19] VITALS: TEMP 98.3
--- NOTE | 2021-02-01 11:18 | ED ---
General Adult HPI <Terrence Townsend - Last Filed: 02/01/21 13:43> - General Source: patient, family, RN notes reviewed Mode of arrival: wheelchair Limitations: no limitations - History of Present Illness -: days(s) (2) Location: chest Radiation: non-radiation Severity scale (1-10): 0 Consistency: now resolved Associated Symptoms: denies other symptoms Treatments Prior to Arrival: none <Hua Evans - Last Filed: 02/01/21 16:22> - General Chief complaint: Recheck/Abnormal Lab/Rx Stated complaint: spitting up blood - History of Present Illness Initial comments: 80-year-old white female, well appearing, presents to the emergency room with complaints of a cough over the past couple of days with occasional small amounts of blood in her sputum. Family at bedside states that they're concerned that she has a history of lung cancer. She was treated with radiation in the spring of this year. She denies any other symptoms. No shortness of breath, chest pain or fevers. She denies any nausea vomiting or diarrhea. Family states that they seen Dr. Joy their oncologist, last seen him was November of this year. (Hua Evans) - Related Data Home Medications Medication Instructions Recorded Confirmed Atorvastatin [Lipitor] 40 mg PO HS 05/03/16 02/01/21 Insulin Aspart [NovoLOG Flexpen] See Protocol SQ AC-TID PRN MDD 10/17/16 02/01/21 units Glimepiride [Amaryl] 1 mg PO DAILY 02/27/20 02/01/21 Memantine [Namenda] 10 mg PO DAILY 02/27/20 02/01/21 Mirabegron [Myrbetriq] 50 mg PO DAILY 02/27/20 02/01/21 prednisoLONE ACETATE 1% OPHTH 1 drops BOTH EYES MOWEFR 02/27/20 02/01/21 [Pred Forte 1%] ALPRAZolam [Xanax] 1 mg PO BID PRN 02/01/21 02/01/21 Aspirin EC [Ecotrin Low Dose] 81 mg PO DAILY 02/01/21 02/01/21 Carbidopa-Levodopa 25-100 mg 1 tab PO TID 02/01/21 02/01/21 [Sinemet 25-100] Clopidogrel [Plavix] 75 mg PO DAILY 02/01/21 02/01/21 Dicyclomine [Bentyl] 20 mg PO BID-W/MEALS PRN 02/01/21 02/01/21 Insulin Detemir [Levemir Flextouch] 12 - 15 units SQ W/BRKFST 02/01/21 02/01/21 Insulin Detemir [Levemir Flextouch] 35 units SQ HS 02/01/21 02/01/21 Meclizine [Antivert] 12.5 mg PO TID PRN 02/01/21 02/01/21 Metoprolol Tartrate [Lopressor] 12.5 mg PO DAILY 02/01/21 02/01/21 Multivitamins, Thera [Multivitamin 1 tab PO DAILY 02/01/21 02/01/21 (formulary)] Allergies Allergy/AdvReac Type Severity Reaction Status Date / Time pioglitazone HCl [From Actos] Allergy Rash/Hives Verified 02/01/21 13:30 sulfamethoxazole Allergy Unknown Verified 02/01/21 13:30 [From Bactrim] trimethoprim [From Bactrim] Allergy Unknown Verified 02/01/21 13:30 moxifloxacin HCl AdvReac Mild Nausea & Verified 02/01/21 13:30 [From Avelox] Vomiting cephalexin monohydrate AdvReac Nausea & Verified 02/01/21 13:30 [From Keflex] Vomiting Review of Systems ROS Other: All systems not noted in ROS Statement are negative. <Terrence Townsend - Last Filed: 02/01/21 13:43> ROS Other: All systems not noted in ROS Statement are negative. <Hua Evans - Last Filed: 02/01/21 16:22> ROS Statement: Those systems with pertinent positive or pertinent negative responses have been documented in the HPI. Past Medical History Past Medical History: Cancer, CVA/TIA, Diabetes Mellitus, GERD/Reflux, Hyperlipidemia, Hypertension, Osteoarthritis (OA) Additional Past Medical History / Comment(s): SKIN CANCER, INCONTINENCE lung cancer History of Any Multi-Drug Resistant Organisms: None Reported Past Surgical History: Cholecystectomy, Joint Replacement Additional Past Surgical History / Comment(s): LEFT PARTIAL KNEE REPLACEMNT, RIGHT EYE -[facility] TRANSPORT Past Anesthesia/Blood Transfusion Reactions: Motion Sickness, Postoperative Nausea & Vomiting (PONV) Additional Past Anesthesia/Blood Transfusion Reaction / Comment(s): ONE TIME THEY STARTED CUTTING AND I WASN'T ASLEEP Past Psychological History: Anxiety Smoking Status: Never smoker Past Alcohol Use History: None Reported Past Drug Use History: None Reported - Past Family History Sister(s) Family Medical History: Cancer Additional Family Medical History / Comment(s): BREAST AND BONE CANCER Father Family Medical History: Cancer Additional Family Medical History / Comment(s): SKIN CANCER <Hua Evans - Last Filed: 02/01/21 16:22> General Exam Limitations: no limitations General appearance: alert, in no apparent distress Head exam: Present: atraumatic, normocephalic, normal inspection Eye exam: Present: normal appearance, PERRL, EOMI. Absent: scleral icterus, conjunctival injection, periorbital swelling ENT exam: Present: normal exam, normal oropharynx, mucous membranes moist Neck exam: Present: normal inspection, full ROM. Absent: tenderness, meningismus, lymphadenopathy, thyromegaly Respiratory exam: Present: normal lung sounds bilaterally. Absent: respiratory distress, wheezes, rales, rhonchi, stridor, chest wall tenderness, accessory muscle use, decreased breath sounds, prolonged expiratory Cardiovascular Exam: Present: regular rate, normal rhythm, normal heart sounds. Absent: systolic murmur, diastolic murmur, rubs, gallop, clicks GI/Abdominal exam: Present: soft, normal bowel sounds. Absent: distended, te nderness, guarding, rebound, rigid Extremities exam: Present: normal inspection, full ROM, normal capillary refill. Absent: tenderness, pedal edema, joint swelling, calf tenderness Back exam: Present: normal inspection, full ROM. Absent: tenderness, CVA tenderness (R), CVA tenderness (L), muscle spasm, paraspinal tenderness, vertebral tenderness Neurological exam: Present: alert, oriented X3, CN II-XII intact Psychiatric exam: Present: normal affect, normal mood Skin exam: Present: warm, dry, intact, normal color. Absent: rash, cyanosis, diaphoretic, erythema, petechiae, pallor, mottled <Hua Evans - Last Filed: 02/01/21 16:22> Course - Reevaluation(s) Time: 15:37 <Hua Evans - Last Filed: 02/01/21 16:22> Vital Signs 02/01/21 02/01/21 10:17 12:33 Temperature 98.3 F Pulse Rate 79 69 Respiratory 16 18 Rate Blood Pressure 135/65 134/55 O2 Sat by Pulse 95 93 L Oximetry - Reevaluation(s) Reevaluation #1: 02/01/21 15:[address] Pool at bedside to discuss case with patient and her . They decided that they want to be discharged home and did not want to stay in the hospital. He states that he will take her to Dr. Joy on his own. (Hua Crain) Medical Decision Making - Lab Data Result diagrams: 02/01/21 12:29 02/01/21 12:29 <Terrence Townsend - Last Filed: 02/01/21 13:43> - Lab Data Result diagrams: 02/01/21 12:29 02/01/21 12:29 <Hua Evans - Last Filed: 02/01/21 16:22> - Medical Decision Making Chest x-ray shows right hilar mass with postobstructive pneumonia, malignancy not excluded. Patient does have history of lung cancer with radiation. CTA of the chest shows no evidence of pulmonary embolism, masslike infiltrate on the right perihilar region underlying mass not excluded suspicious for pneumonia. Plan was to admit patient for IV antibiotics with consults to pulmonology and oncology. Patient's and patient wanted to be discharged after speaking Dr. Pool, he states they would like to follow-up with Dr. Joy their oncologist on an outpatient basis. Discussed the risks and benefits of being discharged versus admitted. states that he wants to be discharged. Dr. Townsend notified along with Dr. Fontaine and admission was canceled. Patient and her notified to return to the emergency room with any increasing shortness of breath, chest pain, fever or worsening bleeding. (Hua Evans) - Lab Data Lab Results 02/01/21 02/01/21 02/01/21 Range/Units 12:29 12:29 12:29 WBC 6.8 (3.8-10.6) k/uL RBC 3.93 (3.80-5.40) m/uL Hgb 12.2 (11.4-16.0) gm/dL Hct 36.9 (34.0-46.0) % MCV 93.8 (80.0-100.0) fL MCH 31.1 (25.0-35.0) pg MCHC 33.2 (31.0-37.0) g/dL RDW 13.4 (11.5-15.5) % Plt Count 134 L (150-450) k/uL MPV 8.3 Neutrophils % 82 % Lymphocytes % 9 % Monocytes % 4 % Eosinophils % 2 % Basophils % 1 % Neutrophils # 5.5 (1.3-7.7) k/uL Lymphocytes # 0.6 L (1.0-4.8) k/uL Monocytes # 0.3 (0-1.0) k/uL Eosinophils # 0.1 (0-0.7) k/uL Basophils # 0.0 (0-0.2) k/uL PT 10.1 (9.0-12.0) sec INR 0.9 (<1.2) APTT 22.2 (22.0-30.0) sec D-Dimer 0.26 (<0.60) mg/L FEU Sodium 140 (137-145) mmol/L Potassium 4.9 (3.5-5.1) mmol/L Chloride 106 (98-107) mmol/L Carbon Dioxide 29 (22-30) mmol/L Anion Gap 5 mmol/L BUN 39 H (7-17) mg/dL Creatinine 1.12 H (0.52-1.04) mg/dL Est GFR (CKD-EPI)AfAm 54 (>60 ml/min/1.73 sqM) Est GFR (CKD-EPI)NonAf 47 (>60 ml/min/1.73 sqM) Glucose 177 H (74-99) mg/dL Plasma Lactic Acid Allen (0.7-2.0) mmol/L Calcium 9.5 (8.4-10.2) mg/dL Magnesium 2.0 (1.6-2.3) mg/dL Total Bilirubin 0.6 (0.2-1.3) mg/dL AST 21 (14-36) U/L ALT <6 (4-34) U/L Alkaline Phosphatase 109 (38-126) U/L Total Protein 6.1 L (6.3-8.2) g/dL Albumin 3.6 (3.5-5.0) g/dL 02/01/21 Range/Units 12:29 WBC (3.8-10.6) k/uL RBC (3.80-5.40) m/uL Hgb (11.4-16.0) gm/dL Hct (34.0-46.0) % MCV (80.0-100.0) fL MCH (25.0-35.0) pg MCHC (31.0-37.0) g/dL RDW (11.5-15.5) % Plt Count (150-450) k/uL MPV Neutrophils % % Lymphocytes % % Monocytes % % Eosinophils % % Basophils % % Neutrophils # (1.3-7.7) k/uL Lymphocytes # (1.0-4.8) k/uL Monocytes # (0-1.0) k/uL Eosinophils # (0-0.7) k/uL Basophils # (0-0.2) k/uL PT (9.0-12.0) sec INR (<1.2) APTT (22.0-30.0) sec D-Dimer (<0.60) mg/L FEU Sodium (137-145) mmol/L Potassium (3.5-5.1) mmol/L Chloride (98-107) mmol/L Carbon Dioxide (22-30) mmol/L Anion Gap mmol/L BUN (7-17) mg/dL Creatinine (0.52-1.04) mg/dL Est GFR (CKD-EPI)AfAm (>60 ml/min/1.73 sqM) Est GFR (CKD-EPI)NonAf (>60 ml/min/1.73 sqM) Glucose (74-99) mg/dL Plasma Lactic Acid Allen 0.7 (0.7-2.0) mmol/L Calcium (8.4-10.2) mg/dL Magnesium (1.6-2.3) mg/dL Total Bilirubin (0.2-1.3) mg/dL AST (14-36) U/L ALT (4-34) U/L Alkaline Phosphatase (38-126) U/L Total Protein (6.3-8.2) g/dL Albumin (3.5-5.0) g/dL Disposition <Terrence Townsend - Last Filed: 02/01/21 13:43> Is patient prescribed a controlled substance at d/c from ED?: No Time of Disposition: 15:55 Decision Date: 02/01/21 Decision Time: 13:35 <Hua Evans - Last Filed: 02/01/21 16:22> Clinical Impression: Lung mass, Pneumonia Disposition: HOME SELF-CARE Condition: Fair Referrals: Rafy Ngo MD [Primary Care Provider] - 1-2 days Marty Joy MD [STAFF PHYSICIAN] - 1-2 days
--- NOTE | 2021-02-01 12:07 | XR ---
EXAMINATION TYPE: XR chest 2V DATE OF EXAM: 02/01/2021 COMPARISON: February 2020 HISTORY: Shortness of breath TECHNIQUE: Frontal and lateral views of the chest are obtained. FINDINGS: Scattered senescent parenchymal changes noted. Hyperinflation compatible with COPD. Right hilar mass with postobstructive pneumonia noted. Heart size is stable. Mediastinal structures are stable and grossly unremarkable. No evidence for hilar prominence. Degenerative changes dorsal spine. IMPRESSION: 1. Right hilar mass with postobstructive pneumonia noted. Malignancy is not excluded.
[2021-02-01 12:38] VITALS: BP 134/55; PULSE 69; RESP 18
[2021-02-01 12:49] LABS: Basophils % (A) 1 %; Eosinophils # (A) 0.1 k/uL (0-0.7); Eosinophils % (A) 2 %; HCT 36.9 % (34.0-46.0); HGB 12.2 gm/dL (11.4-16.0); Lymphocytes # (A) 0.6 k/uL (1.0-4.8); Lymphocytes % (A) 9 %; MCH 31.1 pg (25.0-35.0); MCHC 33.2 g/dL (31.0-37.0); MCV 93.8 fL (80.0-100.0); Mean Platelet Volume 8.3; Monocytes # (A) 0.3 k/uL (0-1.0); Monocytes % (A) 4 %; Neutrophils # (A) 5.5 k/uL (1.3-7.7); Neutrophils % (A) 82 %; Platelet Count 134 k/uL (150-450); RBC 3.93 m/uL (3.80-5.40); RDW 13.4 % (11.5-15.5); WBC 6.8 k/uL (3.8-10.6)
[2021-02-01] MEDS ORDERED: DOXYCYCLINE 100 MG in SODIUM CHLORIDE 0.9% 100 ML IVPB ONE (13:00)
[2021-02-01] MEDS ORDERED: DOXYCYCLINE 100 MG in SODIUM CHLORIDE 0.9% 100 ML IVPB SCH (13:00)
[2021-02-01 13:07] LABS: ALT <6 U/L (4-34); AST 21 U/L (14-36); African American GFR (CKD) 54 (>60 ml/min/1.73 sqM); Albumin 3.6 g/dL (3.5-5.0); Alkaline Phosphatase 109 U/L (38-126); Anion Gap 5 mmol/L; Blood Urea Nitrogen 39 mg/dL (7-17); Calcium 9.5 mg/dL (8.4-10.2); Carbon Dioxide 29 mmol/L (22-30); Chloride 106 mmol/L (98-107); Glucose 177 mg/dL (74-99); Non-African American GFR(CKD) 47 (>60 ml/min/1.73 sqM); Potassium 4.9 mmol/L (3.5-5.1); Sodium 140 mmol/L (137-145); Total Bilirubin 0.6 mg/dL (0.2-1.3); Total Protein 6.1 g/dL (6.3-8.2)
[2021-02-01 13:10] LABS: INR 0.9 (<1.2); Partial Thromboplastin Time 22.2 sec (22.0-30.0); Prothrombin Time 10.1 sec (9.0-12.0)
[2021-02-01] MEDS ORDERED: NALOXONE 0.4 MG/ML 1 ML VIAL IV PRN (13:31)
[2021-02-01] MEDS ORDERED: cefTRIAXone IN SWFI 1,000 MG/10 ML SYRINGE IVP STA (13:31)
[2021-02-01] MEDS ORDERED: AZITHROMYCIN 500 MG in SODIUM CHLORIDE 0.9% 250 ML IVPB STA (13:31)
[2021-02-01] MEDS ORDERED: ACETAMINOPHEN TAB 325 MG TAB PO PRN (13:31)
[2021-02-01] MEDS ORDERED: SODIUM CHLORIDE 0.9% 1,000 ML IV SCH (13:45)
--- NOTE | 2021-02-01 14:27 | CT ---
EXAMINATION TYPE: CT chest angio for PE DATE OF EXAM: 02/01/2021 COMPARISON: 11/30/2020 HISTORY: Hemoptysis CT DLP: 353.7 mGycm CONTRAST: CT chest with contrast and 3D reconstruction with MIP imaging is performed with IV Contrast, patient injected with 80 mL of Isovue 370. Contrast-enhanced CT of the chest was performed through the course of the pulmonary arteries with sharmaine g and mediastinal window settings submitted. 3D reconstruction with MIP imaging was also performed. PULMONARY ARTERIES: The pulmonary arteries and their major tributaries are patent. I do not see wade dence for sizable filling defect to suggest pulmonary embolic process. LUNGS: Masslike infiltrate right perihilar region. Correlate for pneumonia. Underlying mass is not ex cluded. MEDIASTINUM: Thoracic aorta is of normal caliber,however, evaluation is limited given timing of the contrast bolus. If there is concern for thoracic aortic pathology consider JSOE C. Correlate clinicall y . The heart is not enlarged. No evidence for mediastinal mass. No mediastinal lymph nodes greater than 1cm. HILAR STRUCTURES: No evidence for mass. No hilar lymph nodes greater than 1 cm. UPPER ABDOMEN: No significant abnormality is seen. IMPRESSION: 1. No evidence for Pulmonary embolism at this time. 2.Masslike infiltrate right perihilar region. Correlate for pneumonia. Underlying mass is not exclude d.
--- NOTE | 2021-02-01 15:40 | P.CNPUL ---
History of Present Illness Consult date: 02/01/21 Reason for consult: pneumonia History of present illness: 80-year-old female patient with known history of lung cancer. The patient does not see medical oncology. The patient has not seen pulmonology. I believe her biopsy was done spring last year and [facility] and I do not have any results on the biopsy. The patient locally has been followed up by Dr. Marty Joy was offered that only palliative radiation therapy. I believe she had stage III lung cancer based on the CAT scan the PET scan findings. The patient this morning had some limited amount of hemoptysis where she had some bloody mucus on 2 separate occasions. No masses hemoptysis. No chest pain. No worsening shortness of breath. She is on room air oxygen. White cell count is normal. She came into the hospital. CT angiogram was done. No evidence of any pulmon janes embolism. There is enlargement of the right upper lobe mass compared to the previous CAT scans and PET scans. The mass itself has grown in size and he has more consolidated posteriorly and there is also some limited groundglass changes in the upper lobe consistent with radiation changes. She is hemodynamically stable. She is a very poor historian. The is a very poor historian. Unable to he is out any further information from the family. No nausea. No vomiting. No chest pain. No acute decompensation or altered mentation. No pleurisy. No other history available on this patient. She was started on antibiotics and she was admitted on the diagnosis of pneumonia Review of Systems Poor historian. Positive findings are all mentioned above. She seems to apparently somewhat unsteady in terms of her gait. Poor historian. Limited amount of hemoptysis as mentioned earlier. No chest pain. No shortness of breath. Past Medical History Past Medical History: Cancer, CVA/TIA, Diabetes Mellitus, GERD/Reflux, Hyperlipidemia, Hypertension, Osteoarthritis (OA) Additional Past Medical History / Comment(s): SKIN CANCER, INCONTINENCE lung cancer History of Any Multi-Drug Resistant Organisms: None Reported Past Surgical History: Cholecystectomy, Joint Replacement Additional Past Surgical History / Comment(s): LEFT PARTIAL KNEE REPLACEMNT, RIGHT EYE -[facility] TRANSPORT Past Anesthesia/Blood Transfusion Reactions: Motion Sickness, Postoperative Nausea & Vomiting (PONV) Additional Past Anesthesia/Blood Transfusion Reaction / Comment(s): ONE TIME THEY STARTED CUTTING AND I WASN'T ASLEEP Past Psychological History: Anxiety Smoking Status: Never smoker Past Alcohol Use History: None Reported Past Drug Use History: None Reported - Past Family History Sister(s) Family Medical History: Cancer Additional Family Medical History / Comment(s): BREAST AND BONE CANCER Father Family Medical History: Cancer Additional Family Medical History / Comment(s): SKIN CANCER Medications and Allergies Home Medications Medication Instructions Recorded Confirmed Type Atorvastatin [Lipitor] 40 mg PO HS 05/03/16 02/01/21 History Insulin Aspart [NovoLOG Flexpen] See Protocol SQ AC-TID PRN MDD 10/17/16 02/01/21 History units Glimepiride [Amaryl] 1 mg PO DAILY 02/27/20 02/01/21 History Memantine [Namenda] 10 mg PO DAILY 02/27/20 02/01/21 History Mirabegron [Myrbetriq] 50 mg PO DAILY 02/27/20 02/01/21 History prednisoLONE ACETATE 1% OPHTH 1 drops BOTH EYES MOWEFR 02/27/20 02/01/21 History [Pred Forte 1%] ALPRAZolam [Xanax] 1 mg PO BID PRN 02/01/21 02/01/21 History Aspirin EC [Ecotrin Low Dose] 81 mg PO DAILY 02/01/21 02/01/21 History Carbidopa-Levodopa 25-100 mg 1 tab PO TID 02/01/21 02/01/21 History [Sinemet 25-100] Clopidogrel [Plavix] 75 mg PO DAILY 02/01/21 02/01/21 History Dicyclomine [Bentyl] 20 mg PO BID-W/MEALS PRN 02/01/21 02/01/21 History Insulin Detemir [Levemir Flextouch] 12 - 15 units SQ W/BRKFST 02/01/21 02/01/21 History Insulin Detemir [Levemir Flextouch] 35 units SQ HS 02/01/21 02/01/21 History Meclizine [Antivert] 12.5 mg PO TID PRN 02/01/21 02/01/21 History Metoprolol Tartrate [Lopressor] 12.5 mg PO DAILY 02/01/21 02/01/21 History Multivitamins, Thera [Multivitamin 1 tab PO DAILY 02/01/21 02/01/21 History (formulary)] Allergies Allergy/AdvReac Type Severity Reaction Status Date / Time pioglitazone HCl [From Actos] Allergy Rash/Hives Verified 02/01/21 13:30 sulfamethoxazole Allergy Unknown Verified 02/01/21 13:30 [From Bactrim] trimethoprim [From Bactrim] Allergy Unknown Verified 02/01/21 13:30 moxifloxacin HCl AdvReac Mild Nausea & Verified 02/01/21 13:30 [From Avelox] Vomiting cephalexin monohydrate AdvReac Nausea & Verified 02/01/21 13:30 [From Keflex] Vomiting Physical Exam Vitals: Vital Signs Temp Pulse Resp BP Pulse Ox 02/01/21 12:33 69 18 134/55 93 L 02/01/21 10:17 98.3 F 79 16 135/65 95 Intake and Output 02/01/21 02/01/21 02/01/21 06:59 14:59 22:59 Other: Weight 85.275 kg The patient appeared well nourished and normally developed. Vital signs as documented. Head exam is unremarkable. No scleral icterus or corneal arcus noted. Neck is without jugular venous distension, thyromegaly, or carotid br uits. Carotid upstrokes are brisk bilaterally. Lungs bilaterally along with some scattered expiratory wheezes heard bilaterally. Cardiac exam reveals the PMI to be normally sized and situated. Rhythm is regular. First and second heart sounds normal. No murmurs, rubs or gallops. Abdominal exam reveals normal bowel sounds, no masses, no organomegaly and no aortic enlargement. Extremities are nonede matous and both femoral and pedal pulses are normal.Examination of the skin revealed no evidence of significant rashes, suspicious appearing nevi or other concerning lesions.Neurologically, the patient is awake and alert and the patient does not have any focal neurological deficit. Cranial nerves are essentially intact. Despite her being alert and oriented, she is a poor historian, not aware of the historic details of that occurred in terms of her lung cancer and the patient's gait apparently was slightly unsteady and this has been a chronic issue. Results - Laboratory Findings CBC and BMP: 02/01/21 12:29 02/01/21 12:29 PT/INR, D-dimer PT 10.1 sec (9.0-12.0) 02/01/21 12:29 INR 0.9 (<1.2) 02/01/21 12:29 D-Dimer 0.26 mg/L FEU (<0.60) 02/01/21 12:29 Abnormal lab findings: Abnormal Labs 02/01/21 02/01/21 12:29 12:29 Plt Count 134 L Lymphocytes # 0.6 L BUN 39 H Creatinine 1.12 H Glucose 177 H Total Protein 6.1 L - Diagnostic Findings Chest x-ray: image reviewed CT scan - chest: image reviewed Assessment and Plan Plan: 1 locally advanced lung cancer, probably non-small cell type. Management was being done by Dr. Marty Joy from radiation oncology on outpatient basis and the patient has received palliative radiation therapy. No systemic chemotherapy was offered to this patient because of her poor baseline performance status. She has not seen medical oncology. She has not seen pulmonology. She is coming into the hospital because of limited hemoptysis. This is consistent with disease progression as the mass in the right upper lobe has increased in size post radiation therapy and is further progression in her disease. Doubt underlying pneumonia at this point in time. I'm not aware of her exact diagnostic circumstances. Diagnosis established approximately year ago. 2 obesity 3 COPD 4 Hemoptysis, likely secondary to above, limited, none massive 5 history of CVA 6 history of diabetes mellitus 7 history of hyperlipidemia 8 history of hypertension Plan Reviewed the CAT scan findings. Examined the patient. No fever. No leukocytosis. No chest pain. Limited hemoptysis probably related to disease progression in terms of lung cancer. I do not see any indication for admission. The patient can be potentially discharged home and followed up by oncology on outpatient basis. Prognosis poor. She should see Dr. Marty Joy and see if there is any other options for palliation in her case. I think her disease progress. 2 be worthwhile also to do a CAT scan of the brain or an MRI of the brain at a later stage to rule out any metastases. She may get discharged home on oral Augmentin 875 mg by mouth twice a day for the next 7 days.
== END 2021-02-01 16:45 | disposition home or self-care (01) ==
LOC: EC 10:03 → UNDOADMIN 13:43 → 4SSUR 13:43 → EC 16:45
DX: R04.2 Hemoptysis (principal); J18.9 Pneumonia, unspecified organism; R91.8 Other nonspecific abnormal finding of lung field; E11.9 Type 2 diabetes mellitus without complications; I10 Essential (primary) hypertension; E78.5 Hyperlipidemia, unspecified; K21.9 Gastro-esophageal reflux disease without esophagitis; M19.90 Unspecified osteoarthritis, unspecified site; F41.9 Anxiety disorder, unspecified; Z79.02 Long term (current) use of antithrombotics/antiplatelets; Z79.4 Long term (current) use of insulin; Z79.82 Long term (current) use of aspirin; Z79.899 Other long term (current) drug therapy; Z85.118 Personal history of other malignant neoplasm of bronchus and lung; Z85.828 Personal history of other malignant neoplasm of skin; Z86.73 Personal history of transient ischemic attack (TIA), and cerebral infarction without residual deficits; Z88.1 Allergy status to other antibiotic agents; Z88.2 Allergy status to sulfonamides; Z90.49 Acquired absence of other specified parts of digestive tract; Z79.52 Long term (current) use of systemic steroids
CPT/HCPCS: 96374; 96375; 99284; 36415; 85379; 80053; 83605; 83735; 85025; 85610; 85730; 71046; 71275; J0456; J0696; Q9967

== ENCOUNTER → 2021-02-12 | Outpatient (CLI) | payer MEDICARE ==
--- NOTE | 2021-02-22 06:15 | PE ---
EXAMINATION TYPE: PET CT fusion skull to thigh DATE OF EXAM: 02/12/2021 COMPARISON: Prior PET/CT June 26, 2023 studies HISTORY: Right lung cancer treated with radiation 2019. TECHNIQUE: Following the intravenous administration of 12.57 mCi of F-18 FDG, whole body images are performed from the skull base to the midthigh. Images are reviewed on the computer in the coronal, a xial, and sagittal planes. Reconstructed rotating images are created on independent workstation and reviewed on the computer. A localization and attenuation correction CT is performed in conjunction with the PET scan. Blood glucose level equals 169. SCAN: Subsequent Scan FINDINGS: SKULL BASE AND NECK: No new areas of suspicious hypermetabolic uptake. CHEST, MEDIASTINUM, AND HILAR REGION: Corresponding to recent CT there is persistent superior medial right lower lobe mass with possible postobstructive atelectasis extending medially abutting the poste rior mediastinum measuring overall larger in size at 6.7 x 4.8 cm axial image 81 but only smaller are a of persistent central abnormal hypermetabolic uptake, the max SUV is 3.87 on current study axial im age 80 versus 4.34 on prior study . No new areas of abnormal hypermetabolic uptake. No new suspicious thoracic adenopathy. ABDOMEN AND PELVIS: Normal excretion is present. No adrenal mass is noted. No new areas of suspicious hypermetabolic uptake. OSSEOUS STRUCTURES: No new areas of suspicious hypermetabolic uptake. OTHER CT: Coronary artery calcification is redemonstrated . Incidental 4 to 5 mm calcified right midd le lobe nodule or granuloma axial image 85. Cholecystectomy clips redemonstrated. Moderate to severe disc space narrowing lumbosacral junction redemonstrated. IMPRESSION: Primary right midlung neoplasm redemonstrated, Max SUV is only slightly diminished. Overall size more prominent but may be exaggerated by postobstru ctive atelectasis. In conclusion, overall stable findings. No new areas of abnormal hypermetabolic up take noted.
== END | disposition home or self-care (01) ==
LOC: RADPETMAIN 11:43
PROVIDERS: ATTEND Radiology Radiation Oncology
DX: C34.31 Malignant neoplasm of lower lobe, right bronchus or lung (principal); Z92.3 Personal history of irradiation
CPT/HCPCS: 78815; A9552

== ENCOUNTER → 2021-05-03 | Outpatient (CLI) | payer MEDICARE ==
--- NOTE | 2021-05-03 22:15 | CT ---
EXAMINATION TYPE: CT chest wo/w con DATE OF EXAM: 05/03/2021 COMPARISON: 11/30/2020 HISTORY: Malignant neoplasm of lower lobe CT DLP: 769.2 mGycm, Automated exposure control for dose reduction was used. CONTRAST: Performed injected with 50 mL of Isovue 300. TECHNIQUE: Axial images were obtained at 5 mm thick sections. Reconstructed images are reviewed on [email or web address] computer in the coronal plane. FINDINGS: Portion of the thyroid visualized is normal. There is a right lower lobe mass measuring 4.3 x 5.8 cm in the posterior right lower lobe this is lar nicky than comparison this appears to encase pulmonary arteries extending into the right lower lobe No enlarged mediastinal or hilar adenopathy is evident. The ascending aorta diameter at the level o f the main pulmonary artery is 3.1 cm. The main pulmonary artery diameter at the bifurcation is 2.[address] sections are obtained through the upper abdomen. Abdomen is essentially unremarkable. IMPRESSIONS: 1. Enlarging 4.3 x 5.8 cm mass posterior to the right hilum.
== END | disposition home or self-care (01) ==
LOC: RADCTMAIN 12:50
PROVIDERS: ATTEND Radiology Radiation Oncology
DX: C34.31 Malignant neoplasm of lower lobe, right bronchus or lung (principal)
CPT/HCPCS: 82565; 84520; 71270; 36415; Q9967

== ENCOUNTER → 2021-11-23 | Outpatient (CLI) | payer MEDICARE ==
--- NOTE | 2021-11-23 16:49 | CT ---
EXAMINATION TYPE: CT chest wo con DATE OF EXAM: 11/23/2021 COMPARISON: 07/26/2021 HISTORY: LUNG CANCER CT DLP: 322.5 mGycm, Automated exposure control for dose reduction was used. CONTRAST: Performed injected with 0 mL of Isovue 300. TECHNIQUE: Axial images were obtained at 5 mm thick sections. Reconstructed images are reviewed on [email or web address] computer in the coronal plane. FINDINGS: Portion of the thyroid visualized is normal. There is a right perihilar mass which may have extension to the mediastinum. This is estimated to andre sure 5.1 x 4.5 cm. Previous measurement 4.8 x 6.0 cm. No enlarged mediastinal or hilar adenopathy is evident. The ascending aorta diameter at the level o f the main pulmonary artery is 2.3 cm. The main pulmonary artery diameter at the bifurcation is 2.3 cm. Coronary artery calcification is present. Limited CT sections are obtained through the upper abdomen. Abdomen is essentially unremarkable. IMPRESSIONS: 1. Diminished size of the right perihilar mass. 2. No new lung masses or mediastinal enlarged lymph nodes are evident.
== END | disposition home or self-care (01) ==
LOC: RADCTMAIN 10:26
PROVIDERS: ATTEND Radiology Radiation Oncology
DX: C34.90 Malignant neoplasm of unspecified part of unspecified bronchus or lung (principal); R91.8 Other nonspecific abnormal finding of lung field
CPT/HCPCS: 36415; 71250; 82565; 84520

== ENCOUNTER 2022-05-20 11:44 | Emergency (ER) | payer MEDICARE ==
[2022-05-20 12:01] VITALS: BP 93/60; PULSE 78; RESP 22; TEMP 98.8
== END 2022-05-20 15:58 | disposition left against medical advice (07) ==
LOC: EC 11:44
DX: Z53.21 Procedure and treatment not carried out due to patient leaving prior to being seen by health care provider (principal)
CPT/HCPCS: 87502; 87635; 99499